=== PATIENT | male | born 1970 | race Caucasian/White ===

== ENCOUNTER 2021-04-12 01:53 | Observation (INO) | payer BC, SELFPAY ==
[2021-04-12] VITALS (8 sets, daily range): BP systolic 126–200; BP diastolic 93–161; PULSE 75–110; RESP 14–30; TEMP 36.8–36.9; O2SAT 94–100; BMI 45.6
--- NOTE | ~2021-04-12 | CT_ITS ---
EXAMINATION: CTA chest DATE: 04/12/2021 03:59 INDICATION: Chest pain radiating to left arm TECHNIQUE: Computed tomography angiography (CTA) of the chest was performed with 100 mL Omnipaque-350 intravenous contrast timed to evaluate the pulmonary arteries. Coronal maximum intensity projection 3D-reconstructions were created by the technologist. Automated exposure control and iterative reconst ruction technique were employed. Exam dose: 1078.00 mGy-cm total exam DLP. COMPARISON: 04/12/2021 portable AP chest 06/10/2016 CT pulmonary scan FINDINGS: The pulmonary arteries and moderately opacified with contrast material. No pulmonary emboli sm is evident. No thoracic aortic aneurysm or dissection. Normal heart size. No pericardial or pleural effusion. Circumferential thickening of the esophageal wall, possibly secondary to esophagitis. Normal morphology of the adrenal glands. The lungs are clear of infiltrate or consolidation. No pulmonary mass lesion is evident. Diffuse idiopathic skeletal hyperostosis of the thoracic and lumbar spine. No suspicious osteolytic o r osteoblastic lesions. IMPRESSION: No evidence of pulmonary embolism Reviewed, dictated and finalized at [facility]. Reviewed, dictated and finalized at location [facility].
--- NOTE | ~2021-04-12 | XR_ITS ---
EXAMINATION: XR chest 1V portable DATE: 04/12/2021 02:53 INDICATION: Chest pain. TECHNIQUE: A single frontal view of the chest was obtained on 2 radiographs. COMPARISON: Chest 2 views 06/10/2016, chest CT 04/12/2021 FINDINGS: The chest demonstrates clear lungs without pneumonia, pleural effusion, or pneumothorax. Th e heart size is normal. IMPRESSION: 1. No acute cardiopulmonary disease. Reviewed, dictated and finalized at location [facility].
--- NOTE | 2021-04-12 02:08 | ECG_ITS ---
Measurements Intervals [place] Rate: 99 P: 58 WI: 144 QRS: 1 QRSD: 101 T: 65 QT: 334 QTc: 430 Interpretive Statements SINUS RHYTHM EARLY PRECORDIAL R/S TRANSITION ST-T WAVE ABNORMALITY IN ANTEROLATERAL LEADS- CONSIDER ISCHEMIA BASELINE ARTIFACT- I, II, III, AVR, AVL, AVF, V2-V6 ABNORMAL ECG Electronically Signed On 04-12-2021 6:54:06 CDT by Ishan Jj D.O.
[2021-04-12 02:25] LABS: Basophils Absolute Auto 0.1 K/mm3 (0.0-0.1); Basophils Percent Auto 0.7 % (0.2-1.2); Eosinophils Absolute Auto 0.1 K/mm3 (0-0.3); Eosinophils Percent Auto 0.8 % (0-4.4); Hematocrit 53.3 % (42.0-52.0); Hemoglobin 17.7 g/dL (14.0-18.0); Immature Granulocyte Absolute 0.06 K/mm3 (0.00-0.031); Immature Granulocyte Percent A 0.4 % (0-0.5); Lymphocytes Absolute Auto 3.86 K/mm3 (0.9-3.2); Lymphocytes Percent Auto 27.1 % (18.3-44.2); Mean Corpuscular HGB Conc 33.2 g/dl (32-36); Mean Corpuscular Hemoglobin 29.7 pg (26-34); Mean Corpuscular Volume 89.6 fl (80-100); Mean Platelet Volume 10.1 fl (7.4-10.4); Monocytes Absolute Auto 1.2 K/mm3 (0.1-0.6); Monocytes Percent Auto 8.2 % (2.6-8.5); Neutrophils Percent Auto 62.8 % (45.5-73.1); Platelet Count Result 324 k/mm3 (150-375); Red Blood Count 5.95 M/mm3 (4.6-6.20); Red Cell Distribution Width 12.9 % (11.5-14.5); White Blood Count 14.3 K/mm3 (4.5-10.0)
--- NOTE | 2021-04-12 02:31 | ECG_ITS ---
Measurements Intervals [place] Rate: 88 P: 56 [place]: 141 QRS: 0 QRSD: 100 T: 56 QT: 356 QTc: 431 Interpretive Statements SINUS RHYTHM NONSPECIFIC ST & T-WAVE ABNORMALITY- HIGH LATERAL LEADS BASELINE ARTIFACT- I, II, III, AVR, AVF, V1-V6 BORDERLINE ECG Electronically Signed On 04-12-2021 6:54:40 CDT by Ishan Jj D.O.
[2021-04-12 02:37] LABS: Anion Gap 15 mmol/L (8-16); Blood Urea Nitrogen 18 mg/dL (9-20); Calcium 9.8 mg/dL (8.4-10.2); Carbon Dioxide 19 mmol/L (22-30); Chloride 104 mmol/L (98-107); Estimated CRCL calculation 136 ml/min; Estimated Glomerular Filt Rate > 60; Glucose 133 mg/dL (75-110); Potassium 3.9 mmol/L (3.4-5.0); Sodium 138 mmol/L (137-145)
--- NOTE | 2021-04-12 02:39 | ED.CHESTPAIN ---
HPI - Chest Pain General Chief Complaint: Chest Pain Stated Complaint: Chest pain Time Seen by Provider: 04/12/21 01:57 Source: RN notes reviewed History of Present Illness HPI narrative: Patient presents emergency department from home for chest pain. Patient states he has chest pain across the midsternal chest described as a pressure that radiates into his left arm he states associated shortness of breath as well as diaphoresis patient states he does have a history of hypertension high cholesterol diabetes states he has history of anxiety and takes Xanax 2 mg 4 times a day denies any fevers or chills abdominal pain nausea vomiting or any other symptoms Related Data Home Medications Medication Instructions Recorded Confirmed Xanax 04/12/21 alprazolam [Xanax] 2 mg PO BID 04/12/21 04/12/21 atorvastatin [Lipitor] 04/12/21 empagliflozin [Jardiance] mg 04/12/21 lisinopril 04/12/21 metformin mg PO 04/12/21 pregabalin [Lyrica] 300 mg PO HS 04/12/21 04/12/21 venlafaxine mg 04/12/21 Allergies Allergy/AdvReac Type Severity Reaction Status Date / Time metformin Allergy Unknown Verified 06/18/16 22:20 Penicillins Allergy Unknown Verified 10/06/17 21:20 Sulfa (Sulfonamide Allergy Unknown Verified 05/04/15 14:00 Antibiotics) Review of Systems Review of Systems: Narrative: Gen.: Denies fevers or chills Eyes: Denies eye pain or visual change ENT: Denies congestion Respiratory: Reports shortness of breath CV: Reports chest pain GI: Denies abdominal pain nausea, emesis or diarrhea Musculoskeletal: Denies back pain or muscle pain Neuro: Denies numbness, tingling, weakness or focal weakness Skin: Denies rash Except as documented, all other systems reviewed and negative [facility] Past Medical History Medical History Anxiety Chronic low back pain Hypertension Obstructive sleep apnea Peripheral neuropathy Type 2 diabetes mellitus Surgical History Surgical History (Updated 10/13/19 @ 04:06 by Nora Mccray MD) History of arthroscopy of left knee Family History Family History (Updated 04/29/16 @ 23:19 by DOCTOR UNKNOWN) Father Hypertension Family history of diabetes mellitus in first degree relative Mother Hypertension Family history of diabetes mellitus in first degree relative Sibling Family history of diabetes mellitus in first degree relative Social History Social History Smoking status: Current every day smoker Alcohol intake: never Substance use type: marijuana Gender identity (if verbalized by the patient): Male Exam Narrative: Exam Narrative: APPEARANCE: Diaphoretic sitting upright in bed EYES: EOMI HEENT: Normocephalic, atraumatic, OMM RESPIRATORY: No respiratory distress Clear to auscultation bilaterally with no rhonchi wheezing or rales. CARDIOVASCULAR: Regular rate and rhythm without murmurs rubs or gallops. ABDOMINAL: Soft, nontender, nondistended, no rebound or guarding MUSCULOSKELETAl: Moves all extremities. No clubbing, cyanosis or edema. NEURO: Awake and alert. Following commands, speech normal, no focal deficits SKIN:: Warm, dry. No rashes lesions or abrasions PSYCHIATRIC: Normal affect/mood, Course Course Emergency Course: Nitroglycerin placed with no change in pain patient given morphine at that time continues to be diaphoretic will obtain CTA chest to ensure no aneurysm Patient states pain is resolved at this time Called and discussed with Dr. Galvan presentation work-up agrees with plan for admission at this time Patient requesting additional anxiety medication as he explains to me that he is on Xanax 2 mg 4 times a day Discussed with patient my discussion with cardiology discussed need for admission patient states he cannot stay at this time patient's has stage IV cancer and has an appointment at [facility] this morning she currently has a op
[2021-04-12 02:42] LABS: INR 0.9; Prothrombin Time 12.4 Seconds (11.1-14.7)
[2021-04-12 02:44] LABS: Partial Thromboplastin Time 27.8 SECONDS (22.3-36.8)
[2021-04-12] MEDS: ASPIRIN 81 MG CHEWABLE TABLET 324 MG PO (02:46)
[2021-04-12] MEDS: NITROGLYCERIN OINTMENT 1 INCH DOSE TRANSDERM (02:46)
[2021-04-12 02:49] LABS: Troponin I < 0.012 ng/mL (0.000-0.034)
[2021-04-12 03:13] LABS: D Dimer 0.41 ug/mL (<0.48)
[2021-04-12] MEDS: ONDANSETRON INJ 4 MG/2 ML VIAL IV PUSH (03:17)
[2021-04-12] MEDS: MORPHINE SULFATE (*CRX) 4 MG/ML INJ IV PUSH (03:17)
[2021-04-12 03:18] LABS: Alanine Aminotransferase 22 U/L (4-50); Albumin Level 4.9 g/dL (3.5-5.1); Alkaline Phosphatase 89 U/L (38-126); Aspartate Amino Transferase 27 U/L (17-59); Bilirubin,Total 0.5 mg/dL (0.2-1.3); Lipase 38 U/L (23-300)
[2021-04-12] MEDS: LORazepam INJ (*CRX) 2 MG/ML VIAL 1 MG IV PUSH (04:27)
[2021-04-12 05:51] LABS: Troponin I < 0.012 ng/mL (0.000-0.034)
--- NOTE | 2021-04-12 06:10 | PC.NURSE ---
pt currently leaving AMA. pt was told about the risks of leaving and the benefits of staying in the hospital. pt wanting to go to his car to think about it and may be back.
--- NOTE | 2021-04-12 06:23 | PC.NURSE ---
pt leaving AMA without signing or taking his discharge paperwork. pt was told the risks of leaving and the benefits of staying. pt told he can always come back in and to come back in if having chest pain, shortness of breath, nausea/vomiting, lightheadedness or a sudden cold sweat or anything of concern. IV taken out with catheter intact. pt states he is going to his car to think and may be back.
--- NOTE | 2021-04-12 06:23 | PC.NURSE ---
pt came back to room two after going to his car to think about his decision. pt is currently on the phone with his talking loudly.
--- NOTE | 2021-04-12 08:17 | PC.NURSE ---
This patient, Niko Lopez, was admitted to IMU Room 203-01. Patient/family oriented to hospital policies and general routines including ID bracelet, bed and alarms, visiting hours, pain management, procedures, bathroom and other care routines, personal items, smoking policy, room service/diet, and visiting hours. Information on how to activate the Rapid Response Team has been discussed. Patient/Family are encouraged to report perceived risks to care and to ask questions if they do not understand what they are told or what they should do.
--- NOTE | 2021-04-12 08:40 | PM.CNCAR ---
Assessment and Plan Assessment and plan (1) Chest pain: Code(s): R07.9 - Chest pain, unspecified Status: Acute Assessment and Plan: 50 y/o male with no prior cardiac history however multiple cardiovascular risk factors including HTN, DM, HLD, tobacco abuse and morbid obesity who presents with chest pain Chest pain in the setting of anxiety. Has mixed typical and atypical features for angina. He ruled out for GA with negative troponin X3 Given multiple cardiovascular risk factors he would benefit from stress testing for risk stratification and rule out ischemia as potential etiology of chest pain. He prefers to do that in outpatient settings Patient is stable for discharge from cardiac standpoint. Will arrange for follow up within a week. Would start ASA on discharge if patient not already on that Continue Atorvastatin (2) Hypertensive urgency: Code(s): I16.0 - Hypertensive urgency Status: Acute Assessment and Plan: In the setting of Anxiety. BP better now Continue Lisinopril Add HCTZ 25 mg daily with close monitoring of creatinine (had ARIAN in 2019, resolved) (3) Tobacco abuse: Code(s): Z72.0 - Tobacco use Status: Acute Assessment and Plan: Smoking cessation counseling History of Present Illness History of Present Illness Consult date/time: 04/12/21 08:40 50 y/o male with no prior cardiac history however multiple cardiovascular risk factors including HTN, DM, HLD, tobacco abuse and morbid obesity who presents with chest pain He has history of anxiety and depression, reports being under great deal of stress with having terminal illness and taking care of mother as well. He has been taking more Xanax than prescribed. yesterday he developed chest pain that radiated to left arm. He insists that he was having anxiety attack. He had similar episode 4 years ago and was admitted to [facility] and diagnosed with panic attack at that time. He feels back to normal now and wants to go home to take care of . his BP was 200/90 on admission, better now. His troponin is negative X3 EKG shows sinus rhythm with lateral borderline ST depression. He smokes pack a day. Mother has pacemaker. Father from accident Reason For Visit: Chest pain PMFSH Past Medical History Medical History Anxiety Chronic low back pain Hypertension Obstructive sleep apnea Peripheral neuropathy Type 2 diabetes mellitus Surgical History Surgical History (Updated 10/13/19 @ 04:06 by Nora Mccray MD) History of arthroscopy of left knee Family History Family History Father Hypertension Family history of diabetes mellitus in first degree relative Mother Hypertension Family history of diabetes mellitus in first degree relative Sibling Family history of diabetes mellitus in first degree relative Social History Social History Smoking packs per day: 1 Smoking cigarettes per day: 20.0 Years smoked: 20 Smoking pack-years: 20.00 Smoking status: Current every day smoker Tobacco type: cigarettes Alcohol intake: never Substance use: current Substance use type: marijuana Gender identity (if verbalized by the patient): Male Spiritual care concerns: No Meds Home Medications and Allergies Home Medications Medication Instructions Recorded Confirmed Type alprazolam [Xanax] 2 mg PO BID 04/12/21 04/12/21 History atorvastatin [Lipitor] 20 mg PO HS 04/12/21 04/12/21 History empagliflozin [Jardiance] 10 mg PO DAILY 04/12/21 04/12/21 History lisinopril 30 mg PO DAILY 04/12/21 04/12/21 History metformin 500 mg PO BID 04/12/21 04/12/21 History oxycodone-acetaminophen 1 tablet PO Q6H PRN 04/12/21 04/12/21 History pregabalin [Lyrica] 300 mg PO BID 04/12/21 04/12/21 History venlafaxine 75
[2021-04-12 08:52] LABS: Troponin I < 0.012 ng/mL (0.000-0.034)
--- NOTE | 2021-04-12 11:33 | PC.NURSE ---
Patient left against medical advice at 11:20. Patient was informed of potential risks at this time. IV was removed and home meds (alprazolam) were returned.
--- NOTE | 2021-04-19 11:10 | PM.EVENT ---
Event Note Event Note Event Note: History and Physicial 04/12/2021 50 y/o male with no prior cardiac history but PMH of HTN, DM, HLD, tobacco abuse and morbid obesity was admitted with chest pain. He ruled out for AR with negative troponin X3. He was seen by Cardiology and recommended Stress test as outpatient. Once admitted on floor, I was notified of his arrival. When I went to see him, he had already left AMA.
== END 2021-04-12 11:15 | disposition left against medical advice (07) ==
LOC: ANHED 06:03 → ANHIMU 06:49
PROVIDERS: Admitting Provider Internal Medicine; Emergency Provider Emergency Medicine; PCP Internal Medicine; Visit Provider Internal Medicine
DX: R07.9 Chest pain, unspecified (principal); I16.0 Hypertensive urgency; I10 Essential (primary) hypertension; E11.9 Type 2 diabetes mellitus without complications; E78.5 Hyperlipidemia, unspecified; E66.01 Morbid (severe) obesity due to excess calories; E11.42 Type 2 diabetes mellitus with diabetic polyneuropathy; F41.8 Other specified anxiety disorders; F17.210 Nicotine dependence, cigarettes, uncomplicated; G47.33 Obstructive sleep apnea (adult) (pediatric); Z68.42 Body mass index [BMI] 45.0-49.9, adult
CPT/HCPCS: 36415; 71045; 71275; 80048; 80076; 83690; 84484; 85025; 85380; 85610; 85730; 93005; 96374; 96375; 99285; A9270; G0378; G0379; J2060; J2270; J2405; Q9967

== ENCOUNTER 2022-03-23 02:30 | Emergency (ER) | payer BC, SELFPAY ==
[2022-03-23 02:32] VITALS: BP 153/99; PULSE 132; RESP 26; TEMP 37.1; O2SAT 100
[2022-03-23 03:39] VITALS: BP 122/78; PULSE 103; RESP 18; O2SAT 97
--- NOTE | 2022-03-23 03:47 | ED.WOUNDLAC ---
HPI - Wound/Laceration General Chief Complaint: Wound/Laceration <MARJ Pal Last Filed: 03/23/22 03:53> Stated Complaint: wound on back <Yoselin Ibrahim PA-C - Last Filed: 03/23/22 03:53> Time Seen by Provider: 03/23/22 03:24 <Yoselin Ibrahim PA-C - Last Filed: 03/23/22 03:53> History of Present Illness HPI narrative: Patient is a 51-year-old male who presents to the ER for evaluation of a lesion on his low back. Patient states he was tased by police about 3 Weeks ago while dealing with a mental health issue with his . Since then he has experienced redness around the site. States that the area did have crusting overlying it last week, but he denies any drainage from the site. Denies significant pain, fevers, chills, rapid progression of redness, and he tells me that the redness is actually improved over the past week. He has not been taking antibiotics for this. <MARJ Pal Last Filed: 03/23/22 03:53> Related Data Home Medications: Home Medications Medication Instructions Recorded Confirmed alprazolam 2 mg tablet (Xanax) See Rx Instructions .Route 04/12/21 04/12/21 .COMPLEX anxiety atorvastatin 20 mg tablet (Lipitor) 20 mg PO HS 04/12/21 04/12/21 empagliflozin 10 mg tablet 10 mg PO DAILY 04/12/21 04/12/21 (Jardiance) lisinopril 30 mg tablet 30 mg PO DAILY 04/12/21 04/12/21 metformin 500 mg tablet,extended 500 mg PO BID 04/12/21 04/12/21 release 24 hr oxycodone-acetaminophen 10 mg-325 1 tablet PO Q6H PRN pain 04/12/21 04/12/21 mg tablet pregabalin 300 mg capsule (Lyrica) 300 mg PO BID 04/12/21 04/12/21 venlafaxine 75 mg tablet 75 mg PO DAILY 04/12/21 04/12/21 <MARJ Pal Last Filed: 03/23/22 03:53> Allergies/Adverse Reactions: Allergies Allergy/AdvReac Type Severity Reaction Status Date / Time Penicillins Allergy Unknown Anaphylaxis Verified 03/23/22 02:37 Sulfa (Sulfonamide Allergy Unknown Anaphylaxis Verified 03/23/22 02:37 Antibiotics) <Yoselin Ibrahim PA-C - Last Filed: 03/23/22 03:53> Review of Systems Review of Systems: Gen.: Denies fevers or chills Eyes: Denies eye pain or visual change ENT: Denies congestion Respiratory: Denies shortness of breath or cough CV: Denies chest pain or palpitations GI: Denies abdominal pain nausea, emesis or diarrhea denies burning, urgency, frequency or hematuria Musculoskeletal: Denies back pain or muscle pain Neuro: Denies numbness, tingling, weakness or focal weakness Skin: Reports redness to low back. Except as documented, all other systems reviewed and negative <MARJ Pal Last Filed: 03/23/22 03:53> [facility] Past Medical History Medical History: Medical History Anxiety Chronic low back pain Hypertension Obstructive sleep apnea Peripheral neuropathy Type 2 diabetes mellitus <MARJ Pal Last Filed: 03/23/22 03:53> Surgical History Surgical History: Surgical History (Updated 10/13/19 @ 04:06 by Nora Mccray MD) History of arthroscopy of left knee <Yoselin Ibrahim PA-C - Last Filed: 03/23/22 03:53> Family History Family History: Family History Father Hypertension Family history of diabetes mellitus in first degree relative Mother Hypertension Family history of diabetes mellitus in first degree relative Sibling Family history of diabetes mellitus in first degree relative <MARJ Pal Last Filed: 03/23/22 03:53> Social History Social History: Social History Smoking packs per day: 1 Smoking cigarettes per day: 20.0 Years smoked: 20 Smoking pack-years: 20.00 Smoking status: Current every day smoker Tobacco type: cigarettes Alcohol intake: never
[2022-03-23] MEDS: DOXYCYCLINE HYCLATE 100 MG TABLET PO (03:56)
== END 2022-03-23 04:06 | disposition home or self-care (01) ==
PROVIDERS: Emergency Provider Emergency Medicine; PCP Family Medicine
DX: L03.90 Cellulitis, unspecified (principal); F41.9 Anxiety disorder, unspecified; I10 Essential (primary) hypertension; G47.30 Sleep apnea, unspecified; E11.9 Type 2 diabetes mellitus without complications; Z79.84 Long term (current) use of oral hypoglycemic drugs
CPT/HCPCS: 99283; A9270

== ENCOUNTER 2022-04-11 01:49 | Emergency (ER) | payer BC, SELFPAY ==
[2022-04-11] VITALS (12 sets, daily range): BP systolic 157; BP diastolic 86; PULSE 99–117; RESP 14–25; TEMP 36.7; O2SAT 96–100
--- NOTE | ~2022-04-11 | XR_ITS ---
EXAMINATION: XR chest 2V DATE: 04/11/2022 03:02 INDICATION: Chest pain. TECHNIQUE: Frontal and lateral views of the chest were obtained. COMPARISON: Chest single view 04/12/2021 FINDINGS: The chest demonstrates clear lungs without pneumonia, pleural effusion, or pneumothorax. Th e heart size is normal. IMPRESSION: 1. No acute cardiopulmonary disease. Reviewed, dictated and finalized at location A.
--- NOTE | 2022-04-11 01:51 | ECG_ITS ---
Measurements Intervals [place] Rate: 113 P: 63 [place]: 139 QRS: 37 QRSD: 101 T: 60 QT: 311 QTc: 427 Interpretive Statements SINUS TACHYCARDIA BORDERLINE ST-T WAVE ABNORMALITY- DIFFUSE LEADS BASELINE ARTIFACT- I, II, III, AVR, AVL, AVF, V1, V4-V6 ABNORMAL ECG Electronically Signed On 04-11-2022 6:11:18 CDT by Ishan Jj D.O.
[2022-04-11] MEDS: ASPIRIN 81 MG CHEWABLE TABLET 324 MG PO (02:28)
[2022-04-11 02:41] LABS: Basophils Absolute Auto 0.1 K/mm3 (0.0-0.1); Basophils Percent Auto 0.8 % (0.2-1.2); Eosinophils Absolute Auto 0.2 K/mm3 (0-0.3); Eosinophils Percent Auto 1.8 % (0-4.4); Hematocrit 44.6 % (42.0-52.0); Hemoglobin 15.1 g/dL (14.0-18.0); Immature Granulocyte Absolute 0.14 K/mm3 (0.00-0.031); Immature Granulocyte Percent A 1.1 % (0-0.5); Lymphocytes Absolute Auto 4.31 K/mm3 (0.9-3.2); Lymphocytes Percent Auto 32.6 % (18.3-44.2); Mean Corpuscular HGB Conc 33.9 g/dl (32-36); Mean Corpuscular Hemoglobin 30.1 pg (26-34); Mean Corpuscular Volume 88.8 fl (80-100); Mean Platelet Volume 9.7 fl (7.4-10.4); Monocytes Absolute Auto 1.2 K/mm3 (0.1-0.6); Monocytes Percent Auto 9.1 % (2.6-8.5); Neutrophils Absolute Auto 7.2 K/mm3 (1.3-6.7); Neutrophils Percent Auto 54.6 % (45.5-73.1); Platelet Count Result 412 k/mm3 (150-375); Red Blood Count 5.02 M/mm3 (4.6-6.20); White Blood Count 13.2 K/mm3 (4.5-10.0)
[2022-04-11 02:53] LABS: Creatine Kinase 34 U/L (55-170)
[2022-04-11 02:55] LABS: Partial Thromboplastin Time 26.4 SECONDS (22.3-36.8); Prothrombin Time 12.8 Seconds (11.1-14.7)
--- NOTE | 2022-04-11 02:55 | ED.CHESTPAIN ---
HPI - Chest Pain General Chief Complaint: Chest Pain Stated Complaint: CP Time Seen by Provider: 04/11/22 02:03 Source: patient and other History of Present Illness HPI narrative: Patient presents with multiple complaints voiced concerns about multiple stressors and his life however today his primary concern is his right calf pain and chest pain. Reports he has had calf pain since she was tased by the police couple weeks ago. He also reports intermittent chest pain over this time. His current episode of pain was around 8:00 this evening when he is up and walking around he reports currently his pain is improving and is nearly completely resolved. There are some associated shortness of breath denies any nausea vomiting or diaphoresis. His calf pain is achy constant worse with walking around, no radiation. Related Data Home Medications Medication Instructions Recorded Confirmed alprazolam 2 mg tablet (Xanax) See Rx Instructions .Route 04/12/21 04/12/21 .COMPLEX anxiety atorvastatin 20 mg tablet (Lipitor) 20 mg PO HS 04/12/21 04/12/21 empagliflozin 10 mg tablet 10 mg PO DAILY 04/12/21 04/12/21 (Jardiance) lisinopril 30 mg tablet 30 mg PO DAILY 04/12/21 04/12/21 metformin 500 mg tablet,extended 500 mg PO BID 04/12/21 04/12/21 release 24 hr pregabalin 300 mg capsule (Lyrica) 300 mg PO BID 04/12/21 04/12/21 venlafaxine 75 mg tablet 75 mg PO DAILY 04/12/21 04/12/21 Allergies Allergy/AdvReac Type Severity Reaction Status Date / Time Penicillins Allergy Unknown Anaphylaxis Verified 04/11/22 02:01 Sulfa (Sulfonamide Allergy Unknown Anaphylaxis Verified 04/11/22 02:01 Antibiotics) Review of Systems Review of Systems: CONSTITUTIONAL: Denies fever, chills, or sweats. EYES: Denies visual changes, redness, or discharge. ENT: Denies rhinorrhea, congestion, sore throat, or otalgia. CARDIOVASCULAR: Denies palpitations, or edema. RESPIRATORY: Denies cough. GASTROINTESTINAL: Denies abdominal pain, nausea, vomiting, or diarrhea. GENITOURINARY: Denies dysuria or hematuria. SKIN: Denies rash or itching. MUSCULOSKELETAL: Denies back pain, or myalgia. NEUROLOGIC: Denies headache, numbness, dizziness, or weakness. PSYCHIATRIC: Denies anxiety or depression. All systems reviewed & are unremarkable except as noted in HPI and below PMFSH Past Medical History Medical History Anxiety Chronic low back pain Hypertension Obstructive sleep apnea Peripheral neuropathy Type 2 diabetes mellitus Surgical History Surgical History History of arthroscopy of left knee Family History Family History Father Hypertension Family history of diabetes mellitus in first degree relative Mother Hypertension Family history of diabetes mellitus in first degree relative Sibling Family history of diabetes mellitus in first degree relative Social History Social History Smoking packs per day: 1 Smoking cigarettes per day: 20.0 Years smoked: 20 Smoking pack-years: 20.00 Smoking status: Current every day smoker Tobacco type: cigarettes Alcohol intake: never Substance use: current Substance use type: marijuana Gender identity (if verbalized by the patient): Male Spiritual care concerns: No Exam Narrative: GENERAL: Well-appearing, well-nourished, and in no acute distress. HEAD: Normocephalic, atraumatic. EYES: PERRLA and EOMI. ENT: Nares clear, no rhinorrhea or epistaxis. Mucous membranes moist. NECK: Supple. No masses. No JVD CHEST: Mild expiratory wheezing no respiratory distress HEART: Regular rate and rhythm. No murmur heard. Normal peripheral pulses. ABDOMEN: Soft, nontender, nondistended, normal active bowel sounds. EXTREMITIES: Normal range of motion. No edema. SKIN: Warm, dry, no rash. KARRI
[2022-04-11 02:57] LABS: Alanine Aminotransferase 27 U/L (6-50); Albumin Level 4.3 g/dL (3.5-5.1); Alkaline Phosphatase 88 U/L (38-126); Anion Gap 8 mmol/L (8-16); Aspartate Amino Transferase 19 U/L (17-59); Bilirubin,Total < 0.1 mg/dL (0.2-1.3); Blood Urea Nitrogen 28 mg/dL (9-20); Calcium 9.5 mg/dL (8.4-10.2); Carbon Dioxide 26 mmol/L (22-30); Chloride 101 mmol/L (98-107); Estimated CRCL calculation 125 ml/min; Estimated Glomerular Filt Rate > 60; Glucose 188 mg/dL (65-110); Lipase 94 U/L (23-300); Potassium 3.8 mmol/L (3.4-5.0); Sodium 135 mmol/L (137-145)
[2022-04-11 03:08] LABS: Troponin I < 0.012 ng/mL (0.000-0.034)
[2022-04-11] MEDS: IPRATROPIUM BR 0.02% INH SOLN 0.5 MG/2.5 ML VIAL INHALATION (03:08)
[2022-04-11] MEDS: ALBUTEROL SULFATE NEB 2.5 MG/3 ML INH 5 MG INHALATION (03:08)
[2022-04-11 03:15] LABS: D Dimer 0.41 ug/mL (<0.48)
--- NOTE | 2022-04-11 04:02 | PC.NURSE ---
While attempting to secure walker for pt after his request for crutches, pt removed own IV and ambulated out of ED with slow, unassisted gait. Stated he did not want to wait for his d/c paperwork.
== END 2022-04-11 04:06 | disposition home or self-care (01) ==
PROVIDERS: Emergency Provider Emergency Medicine; PCP Family Medicine
DX: R07.9 Chest pain, unspecified (principal); M79.661 Pain in right lower leg; I10 Essential (primary) hypertension; G47.33 Obstructive sleep apnea (adult) (pediatric); E11.42 Type 2 diabetes mellitus with diabetic polyneuropathy; F41.9 Anxiety disorder, unspecified; Z79.84 Long term (current) use of oral hypoglycemic drugs; F17.210 Nicotine dependence, cigarettes, uncomplicated; R00.0 Tachycardia, unspecified; R94.31 Abnormal electrocardiogram [ECG] [EKG]
CPT/HCPCS: 36415; 71046; 80053; 82550; 83690; 84484; 85025; 85380; 85610; 85730; 93005; 94640; 99284; A9270

== ENCOUNTER 2022-11-27 03:33 | Emergency (ER) | payer BC, SELFPAY ==
[2022-11-27] VITALS (22 sets, daily range): BP systolic 91–135; BP diastolic 56–91; PULSE 80–129; RESP 14–23; TEMP 36.9; O2SAT 92–100
--- NOTE | ~2022-11-27 | CT_ITS ---
EXAMINATION: CTA [facility] DATE: 11/27/2022 05:28 INDICATION: Ischemic toes on the left foot TECHNIQUE: Computed tomographic angiography (CTA) of the pelvis, and both lower extremities was perfo rmed with 150 mL Omnipaque-350 intravenous contrast. Automated exposure control and iterative reconst ruction technique were employed. The dose-length product was 1652.97 mGy-cm. Maximum intensity projec tion 3D-reconstructions of the arteries were created by the technologist on a separate workstation. COMPARISON: CT abdomen and pelvis 09/30/2018. FINDINGS: ABDOMINAL AORTA: Normal appearing inferior abdominal aorta. Normal NALDO. PELVIC VASCULATURE: Minimal calcified plaque at the left iliac bifurcation. The bilateral internal and internal iliac art eries are normal. RIGHT LOWER EXTREMITY VASCULATURE: The right common femoral, profunda, and superficial femoral arteries are normal. Thrombotic occlusion of the right popliteal artery. Reconstitution of flow below the level of the trifurcation. Minimal f low present in the distal portions of the right anterior tibial artery just above and at the level of the right ankle joint. Flow is present below the level of the right ankle joint in the posterior tib ial artery. Flow is not detected in the distal portions of the anterior tibial artery at the level of the midfoot and forefoot. LEFT LOWER EXTREMITY VASCULATURE: Normal left common femoral and left superficial femoral arteries. Moderate stenosis from thrombus in the distal portion of the left profundus, with occlusion of some branches. Occluding thrombus in the left popliteal artery, with reconstitution below the level of the trifurcation. Segmental loss of winter w in the proximal left peroneal artery. There is three-vessel flow below the level of the left ankle. Segmental loss of flow in the distal left posterior tibial artery at the level of the calcaneus. ADDITIONAL FINDINGS: Mild subcutaneous edema in the bilateral feet. Degenerative changes in the knees, hips, and lumbar sp ine. Small uncomplicated fat-containing umbilical and bilateral inguinal hernias. Prior appendectomy. Partial right SI joint fusion. IMPRESSION: 1. Bilateral occlusive thrombus in the popliteal arteries. 2. Although three-vessel flow is present at the level of the right ankle, there is decreased flow in the right anterior tibial artery and flow was not visualized in the anterior tibial artery at the lev el of the midfoot and forefoot. 3. Short segment absent flow in the proximal left peroneal artery. Three-vessel flow below the level of the ankle. Short segment loss of flow in the left posterior tibial artery at the level of the calc aneus. 4. Partially occlusive thrombus in the distal left profundus, with occlusion of several branches. Reviewed, dictated and finalized at location K. GRINDER IMPRESSION: 1. Bilateral occlusive thrombus in the popliteal arteries. 2. Although three-vessel flow is present at the level of the right ankle, there is decreased flow in the right anterior tibial artery and flow was not visuali zed in the anterior tibial artery at the level of the midfoot and forefoot. 3. Short segment absent flow in the proximal left peroneal artery. Three-vessel flow below the level of the ankle. Short segment loss of flow in the left post erior tibial artery at the level of the calcaneus. 4. Partially occlusive thrombus in the distal left profundus, with occlusion of several branches.
--- NOTE | ~2022-11-27 | XR_ITS ---
XR foot LT min 3V DATE: 11/27/2022 04:13 INDICATION: Toe pain. Ischemia. TECHNIQUE: 4 views COMPARISON: 10/07/2005 left great toe FINDINGS: Mild plantar calcaneal enthesopathy. Mild osteoarthritic change at the first metatarsophalangeal joint. No recent fracture or dislocation, periosteal reaction or bone destruction. No arterial calcification is noted. IMPRESSION: Osteoarthritis Reviewed, dictated and finalized at location A. HAND IMPRESSION: Osteoarthritis
--- NOTE | ~2022-11-27 | XR_ITS ---
XR chest 1V portable DATE: 11/27/2022 04:12 INDICATION: Cough TECHNIQUE: Portable upright AP chest on November 27, 2022 at 0359 hours COMPARISON: 04/11/2022 2 view chest FINDINGS: Normal heart size. No hilar or mediastinal enlargement. No pulmonary infiltrate or consolid ation, pleural effusion or pulmonary vascular congestion or pneumothorax. IMPRESSION: No active cardiopulmonary disease Reviewed, dictated and finalized at location A. NOMICS CONSULTANT
--- NOTE | ~2022-11-27 | XR_ITS ---
XR foot RT min 3V DATE: 11/27/2022 04:13 INDICATION: Toe pain, ischemia TECHNIQUE: Portable 4 view examination of right foot COMPARISON: None FINDINGS: Mild plantar and posterior calcaneal enthesopathy. There is mild osteoarthritic change at the tarsometatarsal joints and moderate osteoarthritis at the first metatarsophalangeal joint. No fracture, dislocation, periosteal reaction or bone destruction. No arterial calcifications are noted in the distal lower leg, ankle or foot. IMPRESSION: Polyarticular osteoarthritis Reviewed, dictated and finalized at location A. DECORATOR
--- NOTE | 2022-11-27 03:44 | ECG_ITS ---
Measurements Intervals [place] Rate: 117 P: 48 [place]: 108 QRS: 38 QRSD: 101 T: 57 QT: 311 QTc: 435 Interpretive Statements SINUS TACHYCARDIA WITH SHORT MA INTERVAL NONSPECIFIC ST SEGMENT ABNORMALITY ABNORMAL RHYTHM ECG COMPARED TO ECG 04/11/2022 01:58:29 NO SIGNIFICANT CHANGES Electronically Signed On 11-27-2022 8:08:07 SILVERWARE BUFFING MACHINE OPERATOR by Jorge Little M.D.
--- NOTE | 2022-11-27 03:47 | ED.GENADULT ---
HPI - General Adult General Chief complaint: Extremity Problem,Nontraumatic <Benny Hein MD - Last Filed: 11/27/22 07:12> Stated complaint: black toes <Benny Hein MD - Last Filed: 11/27/22 07:12> Time Seen by Provider: 11/27/22 03:37 <Benny Hein MD - Last Filed: 11/27/22 07:12> History of Present Illness HPI narrative: Patient 52-year-old gentleman who presents the emergency department with chief complaint of foot pain patient reports that he was just admitted at [facility] and left AMA on Monday patient reports that he was in the hospital receiving medications to keep his blood pressure up and the tips of his toes started turning blue and have turned black. The patient reports his left foot is exquisitely painful the dorsum of the foot is red and the tips of his toes are black <eBnny Hein MD - Last Filed: 11/27/22 07:12> Related Data Home medications: Home Medications Medication Instructions Recorded Confirmed alprazolam 2 mg tablet (Xanax) See Rx Instructions .Route 04/12/21 04/12/21 .COMPLEX anxiety atorvastatin 20 mg tablet (Lipitor) 20 mg PO HS 04/12/21 04/12/21 empagliflozin 10 mg tablet 10 mg PO DAILY 04/12/21 04/12/21 (Jardiance) lisinopril 30 mg tablet 30 mg PO DAILY 04/12/21 04/12/21 metformin 500 mg tablet,extended 500 mg PO BID 04/12/21 04/12/21 release 24 hr pregabalin 300 mg capsule (Lyrica) 300 mg PO BID 04/12/21 04/12/21 venlafaxine 75 mg tablet 75 mg PO DAILY 04/12/21 04/12/21 <Benny Hein MD - Last Filed: 11/27/22 07:12> Allergies/adverse reactions: Allergies Allergy/AdvReac Type Severity Reaction Status Date / Time Penicillins Allergy Unknown Anaphylaxis Verified 11/27/22 08:04 Sulfa (Sulfonamide Allergy Unknown Anaphylaxis Verified 11/27/22 08:04 Antibiotics) <Benny Hein MD - Last Filed: 11/27/22 07:12> Review of Systems Review of Systems: A 10 system review of systems was completed on the patient and is negative except for what is stated in the HPI. Nursing and ancillary documentation was reviewed. <Benny Hein MD - Last Filed: 11/27/22 07:12> PMFSH Past Medical History Medical History: Medical History Anxiety Chronic low back pain Hypertension Obstructive sleep apnea Peripheral neuropathy Type 2 diabetes mellitus <Benny Hein MD - Last Filed: 11/27/22 07:12> Surgical History Surgical History: Surgical History History of arthroscopy of left knee <Benny Hein MD - Last Filed: 11/27/22 07:12> Family History Family History: Family History Father Hypertension Family history of diabetes mellitus in first degree relative Mother Hypertension Family history of diabetes mellitus in first degree relative Sibling Family history of diabetes mellitus in first degree relative <Benny Hein MD - Last Filed: 11/27/22 07:12> Social History Social History: Social History Smoking packs per day: 1 Smoking cigarettes per day: 20.0 Years smoked: 20 Smoking pack-years: 20.00 Smoking status: Current every day smoker Tobacco type: cigarettes Alcohol intake: never Substance use: current Substance use type: marijuana Gender identity (if verbalized by the patient): Male Spiritual care concerns: No <Benny Hein MD - Last Filed: 11/27/22 07:12> Exam Narrative: GENERAL: Well-appearing, well-nourished, and in no acute distress. HEAD: Normocephalic, atraumatic. EYES: PERRLA and EOMI. ENT: Nares clear, no rhinorrhea or epistaxis. Mucous membranes moist. NECK: Supple. CHEST: Clear to auscultation. No respiratory distres
[2022-11-27] MEDS: MORPHINE SULFATE (*CRX) 4 MG/ML INJ IV PUSH ×3 (04:09→08:47)
[2022-11-27 04:10] LABS: Basophils Absolute Auto 0.2 K/mm3 (0.0-0.1); Eosinophils Absolute Auto 0.3 K/mm3 (0-0.3); Eosinophils Percent Auto 2.1 % (0-4.4); Hematocrit 43.3 % (42.0-52.0); Hemoglobin 14.2 g/dL (14.0-18.0); Immature Granulocyte Absolute 0.44 K/mm3 (0.00-0.031); Immature Granulocyte Percent A 2.9 % (0-0.5); Lymphocytes Absolute Auto 3.22 K/mm3 (0.9-3.2); Lymphocytes Percent Auto 20.9 % (18.3-44.2); Mean Corpuscular HGB Conc 32.8 g/dl (32-36); Mean Corpuscular Hemoglobin 28.8 pg (26-34); Mean Corpuscular Volume 87.8 fl (80-100); Mean Platelet Volume 10.3 fl (7.4-10.4); Monocytes Absolute Auto 1.2 K/mm3 (0.1-0.6); Monocytes Percent Auto 7.9 % (2.6-8.5); Neutrophils Absolute Auto 10.1 K/mm3 (1.3-6.7); Neutrophils Percent Auto 65.2 % (45.5-73.1); Platelet Count Result 450 k/mm3 (150-375); Red Blood Count 4.93 M/mm3 (4.6-6.20); Red Cell Distribution Width 13.7 % (11.5-14.5); White Blood Count 15.4 K/mm3 (4.5-10.0)
[2022-11-27 04:19] LABS: Alanine Aminotransferase 36 U/L (6-50); Albumin Level 4.5 g/dL (3.5-5.1); Alkaline Phosphatase 130 U/L (38-126); Anion Gap 11 mmol/L (8-16); Aspartate Amino Transferase 32 U/L (17-59); Bilirubin,Total 0.5 mg/dL (0.2-1.3); Blood Urea Nitrogen 46 mg/dL (9-20); Calcium 9.7 mg/dL (8.4-10.2); Carbon Dioxide 26 mmol/L (22-30); Chloride 94 mmol/L (98-107); Estimated CRCL calculation 57 ml/min; Estimated Glomerular Filt Rate 32; Glucose 242 mg/dL (65-110); Sodium 131 mmol/L (137-145)
[2022-11-27 04:21] LABS: INR 1.1; Prothrombin Time 13.7 Seconds (11.1-14.7)
--- NOTE | 2022-11-27 04:21 | PC.NURSE ---
Pedal pulse found w/ doppler on LLE.
[2022-11-27 04:22] LABS: Partial Thromboplastin Time 30.5 SECONDS (22.3-36.8)
[2022-11-27 04:23] LABS: CRP 6.6 mg/dL (<1.0); Lactic Acid Reflex 2.1 mmol/L (0.7-2.0); Magnesium 2.5 mg/dL (1.6-2.3)
[2022-11-27 04:47] LABS: Procalcitonin 0.2 ng/mL
[2022-11-27 04:54] LABS: Influenza A QL RT-PCR Negative (Negative); Influenza B QL RT-PCR Negative (Negative); SARS-CoV-2 RNA PCR Negative
--- NOTE | 2022-11-27 06:42 | PC.NURSE ---
Pt resting comfortably in bed, NAD, updated pt on plan of care, states pain is 3/10. Respirations even and unlabored.
[2022-11-27 07:05] LABS: Reflex Lactic Acid Yes or No Add Lactic
--- NOTE | 2022-11-27 07:11 | PC.NURSE ---
Report received from Arlene RN, pt resting comfortably, no s/s of pain at this time.
[2022-11-27 07:48] LABS: Lactic Acid 1.7 mmol/L (0.7-2.0)
[2022-11-27 08:01] LABS: Appearance Urine Clear (Clear); Bilirubin Urine 1+ (Negative); Blood Urine Trace-intact (Negative); Color Urine Yellow (Yellow); Glucose Urine UA 3+ mg/dL (Negative); Ketones Urine Trace mg/dL (Negative); Leukocyte Esterase Ur Negative LEU/UL (Negative); Nitrate Urine Negative (Negative); Protein Urine 2+ mg/dL (Negative); Specific Grav Ur <= 1.005 (1.001-1.035); Urobilinogen Urine 0.2 mg/dL (<2.0)
[2022-11-27 08:14] LABS: Mucus Urine Rare /lpf; Squamous Epithelial Cell Urine Occasional /hpf (Few)
[2022-11-27 08:16] LABS: Add Urine Microscopic? YES
[2022-11-27] MEDS: HEPARIN SOD/D5W 100 UNITS/ML 25,000 UNITS/250 ML BAG 15 UNITS IV CONT (11:49)
[2022-11-27] MEDS: HEPARIN SODIUM 5,000 UNITS/ML VIAL 10000 UNITS IV PUSH (11:51)
[2022-11-27 12:21] LABS: Glucose Point of Care 221 mg/dl (65-105)
--- NOTE | 2022-11-27 13:54 | PC.NURSE ---
pt. gave permission to discuss results and poc with spouse. Updated spouse but she wanted to know number of clots; Stat Rad report so a paper report and not in chart. Unable to provide spouse with number of clots .
[2022-11-27] MEDS: INSULIN ASPART (*BKC) 100 UNITS/ML SUB-Q ×2 (14:24→19:08)
[2022-11-27 14:39] LABS: Glucose Point of Care 302 mg/dl (65-105)
[2022-11-27] MEDS: MORPHINE SULFATE (*CRX) 2 MG/ML INJ IV PUSH ×2 (15:41→19:08)
--- NOTE | 2022-11-27 16:21 | PC.NURSE ---
pt accepted at [facility] Rm 201 ALS [facility] Med accepted ETA 1hr
[2022-11-27 17:33] LABS: Partial Thromboplastin Time 35.8 SECONDS (22.3-36.8)
[2022-11-27 18:47] LABS: Glucose Point of Care 276 mg/dl (65-105)
[2022-11-27] MEDS: HEPARIN SODIUM 5,000 UNITS/ML VIAL 9000 UNITS IV PUSH (19:07)
== END 2022-11-27 19:23 | disposition short-term general hospital (02) ==
PROVIDERS: Emergency Medicine; Emergency Provider Emergency Medicine
DX: I74.3 Embolism and thrombosis of arteries of the lower extremities (principal); E11.22 Type 2 diabetes mellitus with diabetic chronic kidney disease; I12.9 Hypertensive chronic kidney disease with stage 1 through stage 4 chronic kidney disease, or unspecified chronic kidney disease; N18.9 Chronic kidney disease, unspecified; Z20.822 Contact with and (suspected) exposure to COVID-19; E11.42 Type 2 diabetes mellitus with diabetic polyneuropathy; G47.33 Obstructive sleep apnea (adult) (pediatric); F41.9 Anxiety disorder, unspecified; F17.210 Nicotine dependence, cigarettes, uncomplicated; Z79.84 Long term (current) use of oral hypoglycemic drugs; M19.072 Primary osteoarthritis, left ankle and foot; M19.071 Primary osteoarthritis, right ankle and foot; R00.0 Tachycardia, unspecified; R94.31 Abnormal electrocardiogram [ECG] [EKG]
CPT/HCPCS: 36415; 71045; 73630; 73706; 80053; 81001; 82948; 83605; 83735; 84145; 85025; 85610; 85730; 86140; 87040; 87636; 93005; 96365; 96366; 96368; 96375; 96376; 99285; J1644; J1815; J2270; J3370; Q9967

== ENCOUNTER 2022-12-24 16:12 | Emergency (ER) | payer BC, SELFPAY ==
--- NOTE | ~2022-12-24 | XR_ITS ---
XR foot LT min 3V DATE: 12/24/2022 17:04 INDICATION: Leg and toes for 3 weeks. Dry gangrene TECHNIQUE: 4 views of left foot COMPARISON: None FINDINGS: There is soft tissue swelling of the foot. Mild plantar calcaneal enthesopathy without eros stacia change or periostitis. There is moderate osteoarthritis at the first metatarsophalangeal joint. There is mild osteoarthritic change at the tarsal and tarsometatarsal joints. No fracture, dislocation, periosteal reaction or bone destruction is detected. IMPRESSION: Polyarticular osteoarthritis Mild plantar calcaneal enthesopathy Soft tissue swelling Reviewed, dictated and finalized at location A.
[2022-12-24 16:20] VITALS: BP 112/83; PULSE 81; RESP 16; TEMP 36.2; O2SAT 98
[2022-12-24] MEDS: HYDROmorphone HCL INJ (*CRX) 1 MG/ML SYR 0.5 MG IV PUSH ×2 (17:01→18:34)
--- NOTE | 2022-12-24 17:02 | ED.EXTPRO ---
HPI - Extremity Problem General Chief complaint: Extremity Problem,Nontraumatic Stated complaint: left foot infection Time Seen by Provider: 12/24/22 16:31 History of Present Illness HPI Narrative: This is a 52-year-old male, past medical history of peripheral artery disease, status post bypass of the left leg, hypertension and diabetes, who presents to the emergency department complaining of left toe pain. Patient states he was admitted at an outside hospital for peripheral artery disease, or he underwent bypass. During that admission, he was on vasopressors, that resulted in dry gangrene of the toes of the left foot. He states he is being followed by podiatry and vascular surgery, with plan for amputation of the left toes. Today he complains of 8/10 toe pain. He believes he scraped his toes on an object on the floor. He denies fevers, chills or spreading redness of the foot. Related Data Home Medications Medication Instructions Recorded Confirmed alprazolam 2 mg tablet (Xanax) See Rx Instructions .Route 04/12/21 04/12/21 .COMPLEX anxiety atorvastatin 20 mg tablet (Lipitor) 20 mg PO HS 04/12/21 04/12/21 empagliflozin 10 mg tablet 10 mg PO DAILY 04/12/21 04/12/21 (Jardiance) lisinopril 30 mg tablet 30 mg PO DAILY 04/12/21 04/12/21 metformin 500 mg tablet,extended 500 mg PO BID 04/12/21 04/12/21 release 24 hr pregabalin 300 mg capsule (Lyrica) 300 mg PO BID 04/12/21 04/12/21 venlafaxine 75 mg tablet 75 mg PO DAILY 04/12/21 04/12/21 Allergies Allergy/AdvReac Type Severity Reaction Status Date / Time Penicillins Allergy Unknown Anaphylaxis Verified 12/24/22 17:10 Sulfa (Sulfonamide Allergy Unknown Anaphylaxis Verified 12/24/22 17:10 Antibiotics) Review of Systems Review of Systems: CONSTITUTIONAL: Denies fever, chills, or sweats. CARDIOVASCULAR: Denies chest pain, palpitations, or edema. RESPIRATORY: Denies cough or dyspnea. GASTROINTESTINAL: Denies abdominal pain, nausea, vomiting, or diarrhea. GENITOURINARY: Denies dysuria or hematuria. SKIN: Denies rash or itching. MUSCULOSKELETAL: Left toe pain, left foot pain denies back pain, or myalgia. NEUROLOGIC: Denies headache, numbness, dizziness, or weakness. PSYCHIATRIC: Denies anxiety or depression. PENDING SALE TO [facility] Past Medical History Medical History Anxiety Chronic low back pain Hypertension Obstructive sleep apnea Peripheral neuropathy Type 2 diabetes mellitus Surgical History Surgical History History of arthroscopy of left knee Family History Family History Father Hypertension Family history of diabetes mellitus in first degree relative Mother Hypertension Family history of diabetes mellitus in first degree relative Sibling Family history of diabetes mellitus in first degree relative Social History Social History Smoking packs per day: 1 Smoking cigarettes per day: 20.0 Years smoked: 20 Smoking pack-years: 20.00 Smoking status: Current every day smoker Tobacco type: cigarettes Alcohol intake: never Substance use: current Substance use type: marijuana Gender identity (if verbalized by the patient): Male Spiritual care concerns: No Exam Narrative: GENERAL: Well-developed, well-nourished, and in no acute distress. HEAD: Normocephalic, atraumatic. EYES: PERRLA and EOMI. ENT: Mucous membranes moist. Oropharynx without tonsillar hypertrophy exudate or other lesions. CHEST: Clear to auscultation. No respiratory distress. No wheezes rales or rhonchi HEART: Regular rate and rhythm. No murmur heard. Normal peripheral pulses. ABDOMEN: Soft, nontender, nondistended, normal active bowel sounds. EXTREMITIES: Dry gangrene noted of the left first through fifth toes each extending to the distal phalanx. There
[2022-12-24 17:10] LABS: Basophils Absolute Auto 0.1 K/mm3 (0.0-0.1); Eosinophils Absolute Auto 0.3 K/mm3 (0-0.3); Eosinophils Percent Auto 3.3 % (0-4.4); Hematocrit 36.3 % (42.0-52.0); Hemoglobin 11.5 g/dL (14.0-18.0); Immature Granulocyte Absolute 0.04 K/mm3 (0.00-0.031); Immature Granulocyte Percent A 0.5 % (0-0.5); Lymphocytes Absolute Auto 2.73 K/mm3 (0.9-3.2); Lymphocytes Percent Auto 33.2 % (18.3-44.2); Mean Corpuscular HGB Conc 31.7 g/dl (32-36); Mean Corpuscular Hemoglobin 29.2 pg (26-34); Mean Corpuscular Volume 92.1 fl (80-100); Mean Platelet Volume 9.5 fl (7.4-10.4); Monocytes Absolute Auto 0.7 K/mm3 (0.1-0.6); Monocytes Percent Auto 8.9 % (2.6-8.5); Neutrophils Absolute Auto 4.4 K/mm3 (1.3-6.7); Neutrophils Percent Auto 53.1 % (45.5-73.1); Platelet Count Result 387 k/mm3 (150-375); Red Blood Count 3.94 M/mm3 (4.6-6.20); Red Cell Distribution Width 15.8 % (11.5-14.5); White Blood Count 8.2 K/mm3 (4.5-10.0)
[2022-12-24 17:22] LABS: Alanine Aminotransferase 22 U/L (6-50); Alkaline Phosphatase 87 U/L (38-126); Anion Gap 7 mmol/L (8-16); Aspartate Amino Transferase 19 U/L (17-59); Bilirubin,Total 0.5 mg/dL (0.2-1.3); Blood Urea Nitrogen 13 mg/dL (9-20); CRP 1.9 mg/dL (<1.0); Calcium 8.8 mg/dL (8.4-10.2); Carbon Dioxide 25 mmol/L (22-30); Chloride 110 mmol/L (98-107); Estimated CRCL calculation 140 ml/min; Estimated Glomerular Filt Rate > 60; Glucose 182 mg/dL (65-110); Potassium 3.7 mmol/L (3.4-5.0); Sodium 142 mmol/L (137-145)
[2022-12-24 17:41] LABS: Erythrocyte Sedimentation Rate 33 mm/hr (0-20)
[2022-12-24 17:56] VITALS: BP 123/77; PULSE 72; RESP 20; O2SAT 98
[2022-12-24 18:46] VITALS: BP 127/82; PULSE 73; RESP 18; O2SAT 100
--- NOTE | 2022-12-24 19:06 | PC.NURSE ---
Pt left prior of IV removal, called his , she said she is EMT and will pull it out.
--- NOTE | 2022-12-24 19:26 | PC.NURSE ---
[place] police department call about wellness check and pt leaving the hospital prior his IV line removal. PD will go and check on the pt.
== END 2022-12-24 19:08 | disposition home or self-care (01) ==
PROVIDERS: Emergency Provider Preventive Medicine Aerospace Medicine
DX: E11.52 Type 2 diabetes mellitus with diabetic peripheral angiopathy with gangrene (principal); I96 Gangrene, not elsewhere classified; M79.672 Pain in left foot; I10 Essential (primary) hypertension; F17.210 Nicotine dependence, cigarettes, uncomplicated
CPT/HCPCS: 36415; 73630; 80053; 85025; 85652; 86140; 96374; 96376; 99284; J1170

== ENCOUNTER 2022-12-30 13:46 | Emergency (ER) | payer BC, SELFPAY ==
--- NOTE | ~2022-12-30 | XR_ITS ---
XR chest 1V portable DATE: 12/30/2022 15:40 INDICATION: Dizziness. Weakness. TECHNIQUE: PA chest COMPARISON: November 27, 2022 portable AP chest FINDINGS: No pulmonary infiltrate or consolidation, pleural effusion or pulmonary vascular congestion or pneumothorax is evident. Heart size is within normal range. Is mild aortic unfolding. No hilar or mediastinal enlargement. Included skeletal structures are unremarkable. IMPRESSION: No active cardiopulmonary disease Reviewed, dictated and finalized at location B.
--- NOTE | ~2022-12-30 | US_ITS ---
EXAMINATION: US soft tissue LE LT DATE: 12/30/2022 15:44 INDICATION: Peripheral arterial disease status post bypass grafting. Left lower limb pain. TECHNIQUE: Multiple grayscale and Doppler ultrasound images of the left lower limb were obtained. COMPARISON: CTA 11/27/2022 FINDINGS: There is a patent bypass graft from the area of the mid left superficial femoral artery to the calf. There is an 8.3 x 4.0 x 5.2 cm hematoma around the proximal graft attachment. There is a 3. 5 x 2.4 x 7.6 cm hematoma around the distal attachment. No pseudoaneurysm. IMPRESSION: 1. Patent arterial bypass graft from the mid left superficial femoral artery to the calf with hematom as adjacent to the proximal and distal attachments. No pseudoaneurysm. Reviewed, dictated and finalized at location A. IMPRESSION: 1. Patent arterial bypass graft from the mid left superficial femoral artery to the calf with hematomas adjacent to the proximal and distal attachments. No ps eudoaneurysm.
--- NOTE | ~2022-12-30 | US_ITS ---
EXAMINATION: US venous doppler [facility] DATE: 12/30/2022 15:45 INDICATION: Left lower limb pain. TECHNIQUE: Grayscale ultrasound images without and with compression and Doppler ultrasound images of the left lower extremity veins were obtained. COMPARISON: None. FINDINGS: The visualized portions of left common femoral vein, profunda (deep) femoral vein, femoral vein, popl iteal vein, posterior tibial veins, and greater saphenous vein outflow are patent. Note that compress ion was not performed from the femoral vein to the calf due to patient sensitivity. IMPRESSION: 1. No deep venous thrombosis. Reviewed, dictated and finalized at location A.
--- NOTE | ~2022-12-30 | CT_ITS ---
EXAMINATION: CT brain wo con DATE: 12/30/2022 15:38 INDICATION: Dizziness for one day TECHNIQUE: Computed tomography (CT) of the head was performed without intravenous contrast. The mA wa s adjusted according to patient size. Iterative reconstruction technique was employed. Exam dose: 68 1.00 mGy-cm total exam DLP. COMPARISON: None FINDINGS: No intracranial mass lesion or hemorrhage or cerebrovascular accident. No midline shift or mass effect. Normal ventricular size. Normal ricci-white matter differentiation. No subdural or epidur al hematoma is detected. 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 Minimal bilateral ethmoid air cell opacification. The paranasal si nuses and mastoid air cells are otherwise unremarkable. No fracture or bone destruction of the cranial vault. IMPRESSION: No intracranial abnormality Reviewed, dictated and finalized at Location A. Reviewed, dictated and finalized at location B. IMPRESSION: No intracranial abnormality
[2022-12-30 13:50] VITALS: BP 144/102; PULSE 107; RESP 18; TEMP 36.7; O2SAT 98
--- NOTE | 2022-12-30 14:18 | ECG_ITS ---
Measurements Intervals [place] Rate: 108 P: 56 CO: 151 QRS: 23 QRSD: 85 T: 27 QT: 329 QTc: 442 Interpretive Statements SINUS TACHYCARDIA FREQUENT VENTRICULAR PREMATURE COMPLEXES NONSPECIFIC ST & T-WAVE ABNORMALITY- DIFFUSE LEADS BASELINE ARTIFACT- I, III, AVR, AVL, AVF, V1, V3-V6 ABNORMAL ECG COMPARED TO ECG 11/27/2022 04:09:04 FREQUENT VENTRICULAR PREMATURE COMPLEXES NOW PRESENT Electronically Signed On 12-30-2022 14:58:49 CDT by Ishan Jj D.O.
[2022-12-30] MEDS: SODIUM CHLORIDE 0.9% IV 1,000 ML 999 ML IV CONT (14:28)
[2022-12-30 14:32] LABS: Basophils Absolute Auto 0.1 K/mm3 (0.0-0.1); Basophils Percent Auto 0.6 % (0.2-1.2); Eosinophils Absolute Auto 0.4 K/mm3 (0-0.3); Eosinophils Percent Auto 2.8 % (0-4.4); Hematocrit 42.3 % (42.0-52.0); Hemoglobin 13.5 g/dL (14.0-18.0); Immature Granulocyte Absolute 0.06 K/mm3 (0.00-0.031); Immature Granulocyte Percent A 0.5 % (0-0.5); Lymphocytes Absolute Auto 4.11 K/mm3 (0.9-3.2); Lymphocytes Percent Auto 32.8 % (18.3-44.2); Mean Corpuscular HGB Conc 31.9 g/dl (32-36); Mean Corpuscular Hemoglobin 29.8 pg (26-34); Mean Corpuscular Volume 93.4 fl (80-100); Mean Platelet Volume 9.6 fl (7.4-10.4); Monocytes Percent Auto 8.1 % (2.6-8.5); Neutrophils Absolute Auto 6.9 K/mm3 (1.3-6.7); Neutrophils Percent Auto 55.2 % (45.5-73.1); Platelet Count Result 405 k/mm3 (150-375); Red Blood Count 4.53 M/mm3 (4.6-6.20); Red Cell Distribution Width 16.2 % (11.5-14.5); White Blood Count 12.5 K/mm3 (4.5-10.0)
--- NOTE | 2022-12-30 14:38 | PC.NURSE ---
pt to ultrasound at this time.
[2022-12-30 14:45] LABS: Alanine Aminotransferase 25 U/L (6-50); Albumin Level 4.2 g/dL (3.5-5.1); Alkaline Phosphatase 100 U/L (38-126); Anion Gap 12 mmol/L (8-16); Aspartate Amino Transferase 25 U/L (17-59); Bilirubin,Total 0.6 mg/dL (0.2-1.3); Blood Urea Nitrogen 14 mg/dL (9-20); Calcium 8.6 mg/dL (8.4-10.2); Carbon Dioxide 25 mmol/L (22-30); Chloride 103 mmol/L (98-107); Estimated CRCL calculation 147 ml/min; Estimated Glomerular Filt Rate > 60; Glucose 185 mg/dL (65-110); Potassium 3.7 mmol/L (3.4-5.0); Sodium 140 mmol/L (137-145)
[2022-12-30 14:46] LABS: Lactic Acid Reflex 2.9 mmol/L (0.7-2.0)
[2022-12-30 14:50] LABS: INR 1.1; Prothrombin Time 13.7 Seconds (11.1-14.7)
[2022-12-30 14:51] LABS: Partial Thromboplastin Time 24.7 SECONDS (22.3-36.8)
[2022-12-30 14:56] LABS: Troponin I 0.015 ng/mL (0.000-0.034)
[2022-12-30 16:25] LABS: Appearance Urine Clear (Clear); Bacteria Urine None Seen /hpf; Bilirubin Urine Negative (Negative); Blood Urine Negative (Negative); Color Urine Yellow (Yellow); Glucose Urine UA 2+ mg/dL (Negative); Ketones Urine Trace mg/dL (Negative); Leukocyte Esterase Ur Negative LEU/UL (Negative); Nitrate Urine Negative (Negative); Protein Urine 1+ mg/dL (Negative); RBC Urine 0-2 /hpf (0-2); Specific Grav Ur 1.029 (1.001-1.035); Squamous Epithelial Cell Urine Occasional /hpf (Few); WBC Urine 0-5 /hpf; pH Urine 5.5 (5.0-9.0)
[2022-12-30 16:26] LABS: Add Urine Microscopic? YES
[2022-12-30 16:29] VITALS: BP 159/96; PULSE 90; RESP 18; O2SAT 98
[2022-12-30] MEDS: MORPHINE SULFATE (*CRX) 4 MG/ML INJ IV PUSH (17:11)
[2022-12-30 17:27] LABS: Reflex Lactic Acid Yes or No Add Lactic
[2022-12-30 17:49] LABS: Lactic Acid 1.5 mmol/L (0.7-2.0)
--- NOTE | 2022-12-30 18:28 | PC.NURSE ---
[facility] accepted transfer to [facility] Rm # [id number] ETA [id number]
--- NOTE | 2022-12-30 18:37 | ED.GENADULT ---
HPI - General Adult General Chief complaint: Dizziness Stated complaint: dizziness Time Seen by Provider: 12/30/22 13:59 Source: RN notes reviewed History of Present Illness HPI narrative: Patient presents emergency department from home for multiple complaints. Patient states he has been feeling dizzy yesterday and today and this is what he felt like the last time he was septic. He states that at that time he had called his tilt tray driver as he was afraid that he had an infection and was told to come to the emergency department for further evaluation. Patient also notes that he has had swelling around his surgical wound in his left thigh. Patient has a history of having blackened tips of his toes of his left foot and diagnosed with dry gangrene he had been seen in our facility for this back in November and transferred down to [facility] where he had a bypass of his left lower leg and been seen by podiatry for his blackened toes he is scheduled for amputation of his toes on January 05 but secondary to his symptoms today was told to come to the ER he cannot tell me the name of his tilt tray driver or his vascular surgeon but does know the surgeries were done at [facility] he denies any fevers or chills denies chest pain shortness of breath or any other symptoms states he does have pain in his left leg Patient is a poor historian Related Data Home Medications Medication Instructions Recorded Confirmed alprazolam 2 mg tablet (Xanax) See Rx Instructions .Route 04/12/21 04/12/21 .COMPLEX anxiety atorvastatin 20 mg tablet (Lipitor) 20 mg PO HS 04/12/21 04/12/21 empagliflozin 10 mg tablet 10 mg PO DAILY 04/12/21 04/12/21 (Jardiance) lisinopril 30 mg tablet 30 mg PO DAILY 04/12/21 04/12/21 metformin 500 mg tablet,extended 500 mg PO BID 04/12/21 04/12/21 release 24 hr pregabalin 300 mg capsule (Lyrica) 300 mg PO BID 04/12/21 04/12/21 venlafaxine 75 mg tablet 75 mg PO DAILY 04/12/21 04/12/21 Allergies Allergy/AdvReac Type Severity Reaction Status Date / Time Penicillins Allergy Unknown Anaphylaxis Verified 12/30/22 13:47 Sulfa (Sulfonamide Allergy Unknown Anaphylaxis Verified 12/30/22 13:47 Antibiotics) Review of Systems Review of Systems: Gen.: Denies fevers or chills ENT: Denies congestion Respiratory: Denies shortness of breath or cough CV: Denies chest pain or palpitations GI: Denies abdominal pain nausea, emesis or diarrhea Musculoskeletal: Denies back pain or muscle pain Neuro: Denies numbness, tingling, weakness or focal weakness Skin: See HPI Except as documented, all other systems reviewed and negative PMFSH Past Medical History Medical History Anxiety Chronic low back pain Hypertension Obstructive sleep apnea Peripheral neuropathy Type 2 diabetes mellitus Surgical History Surgical History History of arthroscopy of left knee Family History Family History Father Hypertension Family history of diabetes mellitus in first degree relative Mother Hypertension Family history of diabetes mellitus in first degree relative Sibling Family history of diabetes mellitus in first degree relative Social History Social History Smoking packs per day: 1 Smoking cigarettes per day: 20.0 Years smoked: 20 Smoking pack-years: 20.00 Smoking status: Current every day smoker Tobacco type: cigarettes Alcohol intake: never Substance use: current Substance use type: marijuana Gender identity (if verbalized by the patient): Male Spiritual care concerns: No Exam Narrative: APPEARANCE: No acute distress, nontoxic, resting in bed EYES: EOMI, PERRL HEENT: Normocephalic, atraumatic, OMM RESPIRATORY: No respiratory distress Clear to auscultation bilaterally with no rhonchi wheezin
[2022-12-30 18:51] VITALS: BP 139/83; PULSE 90; RESP 15; O2SAT 98
[2022-12-30] MEDS: MORPHINE SULFATE (*CRX) 2 MG/ML INJ IV PUSH (19:40)
--- NOTE | 2022-12-30 19:57 | PC.NURSE ---
Vancomycin stopped for transport per verbal order Dr. Lin.
== END 2022-12-30 19:57 | disposition short-term general hospital (02) ==
PROVIDERS: Emergency Provider Emergency Medicine; PCP Internal Medicine Gastroenterology
DX: E11.52 Type 2 diabetes mellitus with diabetic peripheral angiopathy with gangrene (principal); I96 Gangrene, not elsewhere classified; L76.32 Postprocedural hematoma of skin and subcutaneous tissue following other procedure; I10 Essential (primary) hypertension; F41.9 Anxiety disorder, unspecified; F17.210 Nicotine dependence, cigarettes, uncomplicated
CPT/HCPCS: 36415; 70450; 71045; 76882; 80053; 81001; 83605; 83735; 84484; 85025; 85610; 85730; 93005; 93971; 96365; 96366; 96375; 96376; 99285; J0131; J2270; J3370; J7030

== ENCOUNTER 2023-02-28 08:53 | Emergency (ER) | payer BC, SELFPAY ==
--- NOTE | ~2023-02-28 | CT_ITS ---
EXAMINATION: CT foot LT w con DATE: 02/28/2023 10:25 INDICATION: Left foot pain. TECHNIQUE: Computed tomography (CT) of the left foot was performed with 100 mL Omnipaque 350 intraven ous contrast. Automated exposure control and iterative reconstruction technique were employed. The do se-length product was 469.54 mGy-cm. COMPARISON: Left foot radiographs 12/24/2022 FINDINGS: Bone alignment is normal. There is amputation at head of first proximal phalanx, the bases of the second-fourth proximal phalanges, and head of fifth proximal phalanx. There is mild osteoarthr itis of first metatarsophalangeal joint, ankle joint, and many of the midfoot joints. There are enthe sophytes at the posterior and plantar aspects of calcaneal tuberosity. IMPRESSION: 1. Partial amputation of the toes. No evidence of osteomyelitis. 2. Mild polyarticular osteoarthritis. Reviewed, dictated and finalized at location L.
--- NOTE | ~2023-02-28 | US_ITS ---
EXAMINATION: US venous doppler [facility] DATE: 02/28/2023 09:44 INDICATION: Left lower limb pain. TECHNIQUE: Grayscale ultrasound images without and with compression and Doppler ultrasound images of the left lower extremity veins were obtained. COMPARISON: Ultrasound 12/30/2022 FINDINGS: The visualized portions of left common femoral vein, profunda (deep) femoral vein, femoral vein, popl iteal vein, peroneal veins, posterior tibial veins, and greater saphenous vein outflow are patent. IMPRESSION: 1. No deep venous thrombosis. Reviewed, dictated and finalized at location L.
[2023-02-28 09:00] VITALS: BP 175/123; PULSE 86; RESP 18; TEMP 37.1; O2SAT 96
--- NOTE | 2023-02-28 09:04 | ED.GENADULT ---
HPI - General Adult General Chief complaint: Wound/Laceration Stated complaint: L FOOT POST OP COMPLICATIONS Time Seen by Provider: 02/28/23 09:01 Source: patient Mode of arrival: ambulatory Limitations: no limitations History of Present Illness HPI narrative: This is a 52-year-old male with PMH of T2DM, peripheral neuropathy, HTN, foot gangrene who presents to the ED with chief complaint of left foot pain x10 days. 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 Patient states that he also at this time had a revision of his femoral bypass which had hematomas. He states he initially was doing fine with this but in the last week and a half, he is having more pain specifically in the left foot. Reports multiple falls. Feels like his foot is giving out on him. States that he is having 7 out of 10 pain in the foot. Reports mild swelling and erythema. Pain is specifically worsened with walking. Denies any fevers, drainage at the surgical site. Denies chest pain, shortness of breath, headache, LOC. Related Data Home Medications Medication Instructions Recorded Confirmed alprazolam 2 mg tablet (Xanax) See Rx Instructions .Route 04/12/21 04/12/21 .COMPLEX anxiety atorvastatin 20 mg tablet (Lipitor) 20 mg PO HS 04/12/21 04/12/21 empagliflozin 10 mg tablet 10 mg PO DAILY 04/12/21 04/12/21 (Jardiance) lisinopril 30 mg tablet 30 mg PO DAILY 04/12/21 04/12/21 metformin 500 mg tablet,extended 500 mg PO BID 04/12/21 04/12/21 release 24 hr pregabalin 300 mg capsule (Lyrica) 300 mg PO BID 04/12/21 04/12/21 venlafaxine 75 mg tablet 75 mg PO DAILY 04/12/21 04/12/21 Allergies Allergy/AdvReac Type Severity Reaction Status Date / Time Penicillins Allergy Unknown Anaphylaxis Verified 12/30/22 13:47 Sulfa (Sulfonamide Allergy Unknown Anaphylaxis Verified 12/30/22 13:47 Antibiotics) Review of Systems Review of Systems: CONSTITUTIONAL: Denies fever, chills, or sweats. EYES: Denies visual changes, redness, or discharge. ENT: Denies rhinorrhea, congestion, sore throat, or otalgia. CARDIOVASCULAR: Denies chest pain, palpitations, or edema. RESPIRATORY: Denies cough or dyspnea. GASTROINTESTINAL: Denies abdominal pain, nausea, vomiting, or diarrhea. GENITOURINARY: Denies dysuria or hematuria. SKIN: See HPI MUSCULOSKELETAL: Denies back pain, joint pain, or myalgia. NEUROLOGIC: Denies headache, numbness, dizziness, or weakness. PSYCHIATRIC: Denies anxiety or depression. FOR[facility]LY [facility] Past Medical History Medical History Anxiety Chronic low back pain Hypertension Obstructive sleep apnea Peripheral neuropathy Type 2 diabetes mellitus Surgical History Surgical History History of arthroscopy of left knee Family History Family History Father Hypertension Family history of diabetes mellitus in first degree relative Mother Hypertension Family history of diabetes mellitus in first degree relative Sibling Family history of diabetes mellitus in first degree relative Social History Social History Smoking packs per day: 1 Smoking cigarettes per day: 20.0 Years smoked: 20 Smoking pack-years: 20.00 Smoking status: Current every day smoker Tobacco type: cigarettes Alcohol intake: never Substance use: current Substance use type: marijuana Gender identity (if verbalized by the patient): Male Spiritual care concerns: No Exam Narrative: GENERAL: Well-appearing, well-nourished, and in no acute distress. HEAD: Normocephalic, atraumatic. EYES: PERRLA and EOMI. ENT: Nares clear, no rhinorrhea or epistaxis. Mucous membranes moist. Oropharynx without tonsillar hypertrophy exudate or other lesions. NECK: Supple. No adenopathy or masses. CHEST:
[2023-02-28] MEDS: HYDROmorphone HCL INJ (*CRX) 1 MG/ML SYR 0.5 MG IV PUSH ×2 (09:31→10:52)
[2023-02-28 09:33] VITALS: BP 173/113
[2023-02-28 09:47] VITALS: BP 186/106
[2023-02-28 09:56] LABS: Basophils Percent Auto 0.4 % (0.2-1.2); Eosinophils Absolute Auto 0.3 K/mm3 (0-0.3); Eosinophils Percent Auto 3.1 % (0-4.4); Hematocrit 46.1 % (42.0-52.0); Hemoglobin 14.5 g/dL (14.0-18.0); Immature Granulocyte Absolute 0.02 K/mm3 (0.00-0.031); Immature Granulocyte Percent A 0.2 % (0-0.5); Lymphocytes Absolute Auto 3.25 K/mm3 (0.9-3.2); Lymphocytes Percent Auto 35.6 % (18.3-44.2); Mean Corpuscular HGB Conc 31.5 g/dl (32-36); Mean Corpuscular Hemoglobin 27.9 pg (26-34); Mean Corpuscular Volume 88.8 fl (80-100); Mean Platelet Volume 11.2 fl (7.4-10.4); Monocytes Absolute Auto 0.7 K/mm3 (0.1-0.6); Monocytes Percent Auto 7.3 % (2.6-8.5); Neutrophils Absolute Auto 4.9 K/mm3 (1.3-6.7); Neutrophils Percent Auto 53.4 % (45.5-73.1); Platelet Count Result 319 k/mm3 (150-375); Red Blood Count 5.19 M/mm3 (4.6-6.20); Red Cell Distribution Width 14.5 % (11.5-14.5); White Blood Count 9.1 K/mm3 (4.5-10.0)
[2023-02-28 10:02] VITALS: BP 171/100
[2023-02-28 10:02] LABS: Alanine Aminotransferase 34 U/L (6-50); Albumin Level 4.2 g/dL (3.5-5.1); Alkaline Phosphatase 68 U/L (38-126); Anion Gap 8 mmol/L (8-16); Aspartate Amino Transferase 22 U/L (17-59); Bilirubin,Total 0.6 mg/dL (0.2-1.3); Blood Urea Nitrogen 17 mg/dL (9-20); Carbon Dioxide 26 mmol/L (22-30); Chloride 109 mmol/L (98-107); Estimated Glomerular Filt Rate > 60; Glucose 102 mg/dL (65-110); Potassium 3.9 mmol/L (3.4-5.0); Sodium 143 mmol/L (137-145)
--- NOTE | 2023-02-28 11:07 | PC.NURSE ---
Pt states he did NOT take his BP MEDS this AM because he knows his blood pressure reflects his pain level.
== END 2023-02-28 11:40 | disposition home or self-care (01) ==
PROVIDERS: Emergency Provider Physician Assistant; PCP Internal Medicine Gastroenterology
DX: M79.672 Pain in left foot (principal); E11.42 Type 2 diabetes mellitus with diabetic polyneuropathy; I10 Essential (primary) hypertension; G47.33 Obstructive sleep apnea (adult) (pediatric); Z89.412 Acquired absence of left great toe; Z89.422 Acquired absence of other left toe(s); F17.210 Nicotine dependence, cigarettes, uncomplicated; Z79.84 Long term (current) use of oral hypoglycemic drugs
CPT/HCPCS: 36415; 73701; 80053; 85025; 93971; 96374; 96376; 99284; J1170; Q9967

== ENCOUNTER 2023-03-22 15:38 | Emergency (ER) | payer BC, SELFPAY ==
--- NOTE | ~2023-03-22 | XR_ITS ---
EXAM: XR foot LT min 3V DATE: 03/22/2023 17:38 HISTORY: pain left foot, recent amputations . COMPARISON: 12/24/2022. FINDINGS: Normal mineralization. Partial amputations involving the first through fifth digits. No fr acture or dislocation. No lytic or blastic lesion. Degenerative change in the midfoot and tibiotalar joint. Plantar enthesopathy. No erosion or periosteal change. Mild soft tissue swelling over the fore foot. No subcutaneous gas. IMPRESSION: No radiographic evidence of ostium myelitis. Forefoot soft tissue swelling. No subcutaneo us gas or radiopaque foreign body. Reviewed, dictated and finalized at location K. IMPRESSION: No radiographic evidence of ostium myelitis. Forefoot soft tissue s welling. No subcutaneous gas or radiopaque foreign body.
--- NOTE | ~2023-03-22 | XR_ITS ---
EXAMINATION: XR chest 2V Exam Date/Time: 03/22/2023 16:07 CDT HISTORY: Chest pain Comparison: 12/30/2022. RESULT: Lines, tubes, and devices: None. Lungs and pleura: Emphysematous change, otherwise clear. Cardiomediastinal silhouette: Stable. Other: No acute osseous or upper abdominal finding. IMPRESSION: No acute cardiopulmonary process. Reviewed, dictated and finalized at location K.
--- NOTE | ~2023-03-22 | US_ITS ---
EXAMINATION: US venous doppler [facility] DATE: 03/22/2023 18:02 INDICATION: left foot/calf pain, surgery in december on left foot . TECHNIQUE: Grayscale images without and with compression and Doppler images of the left lower extremi ty veins were obtained. COMPARISON: None FINDINGS: The left common femoral vein, profunda (deep) femoral vein, femoral vein, popliteal vein, peroneal v ein, posterior tibial veins, gastrocnemius vein, and greater saphenous vein are patent. IMPRESSION: 1. Patent left lower extremity veins. No evidence of deep venous thrombosis. Reviewed, dictated and finalized at location K.
[2023-03-22 15:42] VITALS: BP 137/97; PULSE 104; RESP 18; TEMP 36.8; O2SAT 97
--- NOTE | 2023-03-22 15:42 | ECG_ITS ---
Measurements Intervals [place] Rate: 85 P: 18 SD: 127 QRS: 29 QRSD: 102 T: 44 QT: 367 QTc: 439 Interpretive Statements SINUS RHYTHM WITH FREQUENT VENTRICULAR PREMATURE COMPLEXES ABNORMAL RHYTHM ECG COMPARED TO ECG 12/30/2022 13:54:46 SINUS RHYTHM NOW PRESENT Electronically Signed On 03-22-2023 20:00:39 CDT by Concha Serrato M.D.
[2023-03-22 16:02] LABS: Basophils Absolute Auto 0.1 K/mm3 (0.0-0.1); Basophils Percent Auto 0.9 % (0.2-1.2); Eosinophils Absolute Auto 0.2 K/mm3 (0-0.3); Hematocrit 50.5 % (42.0-52.0); Hemoglobin 15.9 g/dL (14.0-18.0); Immature Granulocyte Absolute 0.04 K/mm3 (0.00-0.031); Immature Granulocyte Percent A 0.4 % (0-0.5); Lymphocytes Absolute Auto 2.79 K/mm3 (0.9-3.2); Lymphocytes Percent Auto 28.9 % (18.3-44.2); Mean Corpuscular HGB Conc 31.5 g/dl (32-36); Mean Corpuscular Hemoglobin 27.7 pg (26-34); Mean Platelet Volume 10.5 fl (7.4-10.4); Monocytes Absolute Auto 0.8 K/mm3 (0.1-0.6); Neutrophils Absolute Auto 5.8 K/mm3 (1.3-6.7); Neutrophils Percent Auto 59.8 % (45.5-73.1); Platelet Count Result 333 k/mm3 (150-375); Red Blood Count 5.74 M/mm3 (4.6-6.20); Red Cell Distribution Width 14.6 % (11.5-14.5); White Blood Count 9.7 K/mm3 (4.5-10.0)
[2023-03-22 16:16] LABS: Prothrombin Time 13.8 Seconds (11.1-14.7)
[2023-03-22 16:26] LABS: Alanine Aminotransferase 26 U/L (6-50); Albumin Level 4.3 g/dL (3.5-5.1); Alkaline Phosphatase 71 U/L (38-126); Anion Gap 7 mmol/L (8-16); Aspartate Amino Transferase 19 U/L (17-59); Bilirubin,Total 0.4 mg/dL (0.2-1.3); Blood Urea Nitrogen 15 mg/dL (9-20); Calcium 8.9 mg/dL (8.4-10.2); Carbon Dioxide 25 mmol/L (22-30); Chloride 109 mmol/L (98-107); Estimated CRCL calculation 121 ml/min; Estimated Glomerular Filt Rate > 60; Glucose 123 mg/dL (65-110); Lipase 33 U/L (23-300); Potassium 4.5 mmol/L (3.4-5.0); Sodium 141 mmol/L (137-145)
[2023-03-22 16:38] LABS: Troponin I < 0.012 ng/mL (0.000-0.034)
[2023-03-22 16:42] VITALS: BP 140/90; PULSE 85; RESP 20; TEMP 36.7; O2SAT 95
--- NOTE | 2023-03-22 17:16 | ED.GENADULT ---
HPI - General Adult General Chief complaint: Unspecified <MARJ Montoya Last Filed: 03/23/23 04:39> Stated complaint: Issues post left foot surgery <MARJ Montoya Last Filed: 03/23/23 04:39> Time Seen by Provider: 03/22/23 16:53 <MARJ Montoya Last Filed: 03/23/23 04:39> Source: patient and old records reviewed <MARJ Montoya Last Filed: 03/23/23 04:39> Mode of arrival: ambulatory <MARJ Montoya Last Filed: 03/23/23 04:39> Limitations: no limitations <MARJ Montoya Last Filed: 03/23/23 04:39> History of Present Illness HPI narrative: Patient is a 52-year-old male who presents to the ED with report of left foot pain. Patient reports history of gangrene in his left foot and toes and partial amputations of his left toes in December, which was performed by Dr. Gene Ambrosio, a human services program specialist with [facility]. Patient has had issues with pain in his left foot since his surgeries. He states he has an appointment next week on Monday with his human services program specialist, but he states he was referred to our hospital today to have his pain managed until he can see his human services program specialist next week. Patient reports having worsening pain over the last 4 to 5 days, worse with ambulation. He describes the pain as a burning pain. Pain does extend into his calf slightly. He uses a cane for assistance with walking. He has taken Tylenol and Aleve today. He also takes Lyrica for neuropathic pain. Denies any numbness, tingling, recurrent injury, redness, wounds, fevers. Per patient's [place] PDMP, he had a 14-day supply of oxycodone 325/10 mg filled on 03/09. He had another 14-day supply of oxycodone 325/5 mg filled on 03/15. These were both prescribed by patient's human services program specialist. <MARJ Montoya Last Filed: 03/23/23 04:39> Related Data Home medications: Home Medications Medication Instructions Recorded Confirmed alprazolam 2 mg tablet (Xanax) See Rx Instructions .Route 04/12/21 04/12/21 .COMPLEX anxiety atorvastatin 20 mg tablet (Lipitor) 20 mg PO HS 04/12/21 04/12/21 empagliflozin 10 mg tablet 10 mg PO DAILY 04/12/21 04/12/21 (Jardiance) lisinopril 30 mg tablet 30 mg PO DAILY 04/12/21 04/12/21 metformin 500 mg tablet,extended 500 mg PO BID 04/12/21 04/12/21 release 24 hr pregabalin 300 mg capsule (Lyrica) 300 mg PO BID 04/12/21 04/12/21 venlafaxine 75 mg tablet 75 mg PO DAILY 04/12/21 04/12/21 <MARJ Montoya Last Filed: 03/23/23 04:39> Allergies/adverse reactions: Allergies Allergy/AdvReac Type Severity Reaction Status Date / Time Penicillins Allergy Unknown Anaphylaxis Verified 03/22/23 16:46 Sulfa (Sulfonamide Allergy Unknown Anaphylaxis Verified 03/22/23 16:46 Antibiotics) <Citlalli Lau PA-C - Last Filed: 03/23/23 04:39> Review of Systems Review of Systems: CONSTITUTIONAL: Denies fever, chills, or sweats. CARDIOVASCULAR: Denies chest pain. RESPIRATORY: Denies dyspnea. SKIN: See HPI. MUSCULOSKELETAL: See HPI. NEUROLOGIC: Denies headache, numbness, or weakness. <Citlalli Lau PA-C - Last Filed: 03/23/23 04:39> All systems reviewed & are unremarkable except as noted in HPI and below <Citlalli Lau PA-C - Last Filed: 03/23/23 04:39> [facility] Past Medical History Medical History: Medical History Anxiety Chronic low back pain Hypertension Obstructive sleep apnea Peripheral neuropathy Type 2 diabetes mellitus <Citlalli Lau PA-C - Last Filed: 03/23/23 04:39> Surgical History Surgical History: Surgical History History of arthroscopy of left knee <Citlalli Lau PA-C - Last Filed: 03/23/23 04:39> Family History Family History: Family History (Reviewed 12/24/22 @ 17:04 by Urbano Harden,
--- NOTE | 2023-03-22 18:06 | PC.NURSE ---
pt pushing call light and repeatedly asking to see a doctor. this RN told pt that our Physician state tested nursing assistant Citlalli Gonzalez has seen him and is taking care of him. pt states she is not a doctor and wanting to speak with a doctor. Dr. Correa spoke with pt and agrees with Citlalli's plan of care. pt requesting pain medication. Dr. Correa stating pt needs to follow up with his waste chopper who has been taking care of him for his chronic issues. pt states Oh okay fuck me then right pt wanting to leave AMA. pt made aware of risks of leaving and the benefits of staying. pt still wanting to leave AMA. pt made aware he can always return if he changes his mind. when trying to get a signature from pt. pt states I ain't signing no damn paperwork Im out of here! pt getting dressed and demanding a wheelchair. got pt a wheelchair and pt wheeled himself out while stating Fuck all of you [facility] is [facility]
== END 2023-03-22 18:34 | disposition left against medical advice (07) ==
PROVIDERS: Emergency Medicine; Emergency Provider Physician Assistant; PCP Internal Medicine Gastroenterology
DX: E11.42 Type 2 diabetes mellitus with diabetic polyneuropathy (principal); I10 Essential (primary) hypertension; G47.33 Obstructive sleep apnea (adult) (pediatric); F41.9 Anxiety disorder, unspecified; F17.210 Nicotine dependence, cigarettes, uncomplicated; Z89.412 Acquired absence of left great toe; Z89.422 Acquired absence of other left toe(s); Z79.84 Long term (current) use of oral hypoglycemic drugs; I49.3 Ventricular premature depolarization
CPT/HCPCS: 36415; 71046; 73630; 80053; 83690; 84484; 85025; 85610; 85730; 93005; 93971; 99284

== ENCOUNTER 2024-05-06 08:02 | Outpatient (CLI) | payer MEDICARE, SELFPAY ==
--- NOTE | 2024-05-06 09:23 | ECG_ITS ---
Test Date: 2024-05-06 09:41:18 Measurements Intervals [place] Rate: 97 P: 55 DC: 148 QRS: 10 QRSD: 103 T: 46 QT: 356 QTc: 453 Interpretive Statements SINUS RHYTHM NORMAL ELECTROCARDIOGRAM No previous ECG available for comparison Electronically Signed On 05-06-2024 17:09:43 CDT by Jorge Little M.D.
[2024-05-06 09:55] LABS: Basophils Absolute Auto 0.1 K/mm3 (0.0-0.1); Basophils Percent Auto 1.1 % (0.2-1.2); Eosinophils Absolute Auto 0.3 K/mm3 (0-0.3); Eosinophils Percent Auto 3.2 % (0-4.4); Hematocrit 46.7 % (42.0-52.0); Immature Granulocyte Absolute 0.03 K/mm3 (0.00-0.031); Immature Granulocyte Percent A 0.4 % (0-0.5); Lymphocytes Absolute Auto 3.43 K/mm3 (0.9-3.2); Mean Corpuscular HGB Conc 32.1 g/dl (32-36); Mean Corpuscular Hemoglobin 28.6 pg (26-34); Mean Corpuscular Volume 89.1 fl (80-100); Mean Platelet Volume 9.8 fl (7.4-10.4); Monocytes Absolute Auto 0.8 K/mm3 (0.1-0.6); Monocytes Percent Auto 9.9 % (2.6-8.5); Neutrophils Absolute Auto 3.7 K/mm3 (1.3-6.7); Neutrophils Percent Auto 44.4 % (45.5-73.1); Platelet Count Result 357 k/mm3 (150-375); Red Blood Count 5.24 M/mm3 (4.6-6.20); Red Cell Distribution Width 14.2 % (11.5-14.5); White Blood Count 8.4 K/mm3 (4.5-10.0)
[2024-05-06 10:01] LABS: Albumin Level 4.6 g/dL (3.5-5.1)
[2024-05-06 10:04] LABS: Anion Gap 9 mmol/L (4-12); Blood Urea Nitrogen 13 mg/dL (9-20); Calcium 9.3 mg/dL (8.4-10.2); Carbon Dioxide 31 mmol/L (22-30); Chloride 99 mmol/L (98-107); Estimated Glomerular Filt Rate > 60; Glucose 127 mg/dL (65-110); Potassium 4.6 mmol/L (3.4-5.0); Sodium 139 mmol/L (137-145)
[2024-05-06 10:09] LABS: Urine Cotinine NEGATIVE
[2024-05-06 12:36] LABS: Hemoglobin A1C 6.7 % (<5.7)
== END 2024-05-06 08:03 | disposition home or self-care (01) ==
LOC: ANHSURGERY 08:06
PROVIDERS: Anesthesiology; PCP Internal Medicine Gastroenterology; Visit Provider Orthopaedic Surgery
DX: M17.11 Unilateral primary osteoarthritis, right knee (principal); E11.9 Type 2 diabetes mellitus without complications; Z01.818 Encounter for other preprocedural examination
CPT/HCPCS: 36415; 80048; 80307; 82040; 83036; 85025; 86850; 86900; 86901; 93005

== ENCOUNTER 2024-05-08 02:06 | Day surgery (SDC) | payer MEDICARE, MEDICAID, SELFPAY ==
[2024-05-06 08:17] VITALS: BMI 37.1
--- NOTE | 2024-05-06 08:59 | PC.NURSE ---
Addendum entered by Cheyenne Carranza RN 05/06/24 09:06: PT STATES NO LONGER TAKING VENLAFAXINE. MAY TAKE TYLENOL IF NEEDED FOR PAIN Original Note: Report to the Outpatient Waiting Room, entrance under the green pavilion located off [facility], at time __6:00 AM on date ___05/08/24____. Planned Procedure Time: __7:30 AM . Time changes happen often and if your time is changed the preop area will call you the afternoon before. - You and your visitor will be asked to self-screen and do not enter if you have any COVID symptoms. - A mask is optional within the hospital at this time. Patients may have clear liquids (water, carbonated beverages, clear teas, apple juice) until 3 hours prior to surgery( 4:30 AM) with a maximum of 20 ounces. - No food from midnight until time of surgery - Infants may have breast milk until 4 hours before surgery, formula 6 hours prior to surgery. - Children will be allowed to drink immediately following surgery. If applicable, please bring a bottle or sippy cup to assist with drinking. Juice, water, soda, and popsicles are readily available. For infants on formula, please bring formula the day of surgery. Pacifiers are allowed. Take the following medications with a SIP of water the morning of surgery: ____XANAX,AMLODIPINE,CARVEDILOL,LYRICA,VENLAFAXINE DO NOT STOP ANY OF YOUR OTHER PRESCRIPTION MEDICATIONS PRIOR TO SURGERY ?EXCEPT THE FOLLOWING Medications to discontinue per physician HOLD MULTIVITAMIN 3 DAYS PRE OP PER ANESTHESIA. PT STATES LAST DOSE 04/30/24 Please no make-up, nail congolese, hairspray, perfume, deodorant, or body powder the day of surgery. No jewelry (including any body piercings) or valuables the day of surgery, leave them at home. Please take a shower or bath the night before, or the morning of, surgery with an antibacterial soap. Wear comfortable, loose fitting clothing. Children are encouraged to wear pajamas. - Jewelry must be removed prior to entering the operating room. Rings and piercings that are not removed may be cut off. - The hospital will not accept responsibility for valuables. - Please leave all valuables, including medications, at home the day of surgery. If you are going home after surgery, a licensed motor driver must drive you home. - NO public transportation without another adult if you receive anesthesia. - We recommend that an adult stay with you for 24 hours following discharge. - We also recommend that you do not drive, make important decision, drink alcoholic beverages, or take any drugs that were not prescribed by your health care provider for at least 24 hours after your discharge time. Follow any additional instructions given to you from your surgeon. If you or anyone in your household have experienced Covid symptoms in the past week, please notify your surgeon or the nurse liaison at the phone number below for possible testing. VERBAL AND WRITTEN instructions given to _PATIENT and asked if any additional questions and then verbalized understanding. Patient advised to call surgeon office or pre surgery nurse liaison [phone] if any additional questions.
[2024-05-06 09:12] VITALS: BP 159/100; PULSE 87; RESP 18; TEMP 36.9; O2SAT 98
--- NOTE | 2024-05-07 07:06 | PM.IMHP ---
H&P: HPI History of Present Illness Date/Time: 05/07/24 07:06 Chief Complaint: Right Knee Osteoarthritis Review of Systems Musculoskeletal: Musculoskeletal: Reports arthralgias, Reports joint swelling and Reports stiffness [facility] Past Medical History Medical History Anxiety Chronic low back pain Hypertension Obstructive sleep apnea Peripheral neuropathy Type 2 diabetes mellitus Surgical History Surgical History History of aortoiliofemoral vascular bypass History of appendectomy History of arthroscopic knee surgery bilateral History of arthroscopy of left knee History of partial amputation of toe of left foot Family History Family History (Updated 04/30/24 @ 10:43 by KENIA Martínez) Father Hypertension Family history of diabetes mellitus in first degree relative Mother Hypertension Family history of diabetes mellitus in first degree relative Cellulitis Heart disease Sibling Family history of diabetes mellitus in first degree relative Social History Social History (Updated 04/30/24 @ 10:44 by KENIA Martínez) Smoking packs per day: 1 Smoking cigarettes per day: 20.0 Years smoked: 20 Smoking pack-years: 20.00 Smoking status: Former smoker Tobacco type: cigarettes Second hand tobacco smoke exposure: Yes Smoking end date: 03/07/24 Additional smoking assessment comments: DENIES ANY FORM OF TOBACCO USE Alcohol intake: never Substance use: former Substance use type: marijuana Last use: last use 2020 Do You Feel Safe in your Home?: Yes Lack of Transportation: No Lack of Food: Sometimes True Current Housing: I Have Housing Concerned About Future Housing: No Difficulty Paying Gas/Electric Bills: YES Difficulty Paying for Meds: YES Currently Unemployed: No Education: Master's Degree or Higher Difficulty w/ Childcare or Family Care: No Living arrangements: other Additional living arrangements comments: lives with girlfriend Occupation/Education: retired 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[employer] Gender identity (if verbalized by the patient): Male Spiritual care concerns: No Meds Home Medications and Allergies Home Medications Medication Instructions Recorded Confirmed Type alprazolam 2 mg tablet (Xanax) See Rx Instructions .Route 04/12/21 05/06/24 History .COMPLEX anxiety atorvastatin 20 mg tablet (Lipitor) 20 mg PO HS 04/12/21 05/06/24 History pregabalin 300 mg capsule (Lyrica) 300 mg PO BID 04/12/21 05/06/24 History rivaroxaban 10 mg tablet (Xarelto) 10 mg PO DAILY PE Prophylaxis s/p 04/05/24 05/06/24 Rx joint replacement surgery #10 tabs acetaminophen 500 mg capsule 1,000 mg PO Q6H PRN Pain 05/06/24 05/06/24 History amlodipine 10 mg tablet 10 mg PO DAILY 05/06/24 05/06/24 History carvedilol 12.5 mg tablet 12.5 mg PO BID 05/06/24 05/06/24 History glipizide 5 mg tablet 5 mg PO DAILY 05/06/24 05/06/24 History hydrochlorothiazide 25 mg tablet 25 mg PO DAILY 05/06/24 05/06/24 History lisinopril 40 mg tablet 40 mg PO DAILY 05/06/24 05/06/24 History metformin 1,000 mg tablet 1,000 mg PO BID 05/06/24 05/06/24 History multivitamin (Daily Multi-Vitamin 1 tablet PO DAILY 05/06/24 05/06/24 History tablet) trazodone 50 mg tablet 50 mg PO PRN PRN Insomnia 05/06/24 05/06/24 History Allergies Allergy/AdvReac Type Severity Reaction Status Date / Time Penicillins Allergy Unknown Anaphylaxis Verified 05/06/24 08:21 Sulfa (Sulfonamide Allergy Unknown Nausea and Verified 05/06/24 08:22 Antibiotics) Vomiting Vital Signs Vital Signs - 24 hr 05/06/24 09:12 Temperature 98.5 F Pulse Rate 87 Respiratory Rate 18 Blood Pressure 159/100 H Pulse Oximetry 98 Oxygen Delivery Room Air Exam Narrative: Patient is NVI. ROM 5-110. Patient has an antalgic gait. Pain with motion
[2024-05-08] VITALS (15 sets, daily range): BP systolic 123–176; BP diastolic 62–116; PULSE 73–99; RESP 13–22; TEMP 36.1–37.1; O2SAT 95–100
--- NOTE | ~2024-05-08 | XR_ITS ---
EXAMINATION: [id number] DATE: 05/08/2024 10:19 INDICATION: Total right knee arthroplasty. Postop. TECHNIQUE: 2 views of right knee were obtained. COMPARISON: Right knee radiographs 11/15/2023 FINDINGS: There is a total right knee arthroplasty with patellar resurfacing in near-anatomic alignme nt. No fracture. There is gas in the knee joint and soft tissues, consistent with recent surgery. Ant erior skin giovanni are noted. IMPRESSION: 1. Total right knee arthroplasty in near-anatomic alignment. Reviewed, dictated and finalized at location A.
--- NOTE | 2024-05-08 06:41 | WPDHPUPDATE1 ---
History and Physical Update Update Date/Time: 05/08/24 06:41 History and Physical has been reviewed, including an updated exam of the patient. There are NO changes in the patient's condition. Risks, benefits, and alternatives have been discussed and questions answered. Patient agrees to proceed with procedure. Discussed AGAIN, the risks of surgery in detail. Infection and possibility of not getting his knee totally straight were discussed and are certainly worrisome. This can lead to eventual amputation. He understands, but is miserable, has lost significant weight and wants to proceed. Will proceed per his request.
[2024-05-08] MEDS: ACETAMINOPHEN 500 MG TABLET 1000 MG PO (06:45)
[2024-05-08] MEDS: LACTATED RINGERS 1,000 ML 30 ML IV CONT ×3 (06:50→11:15)
[2024-05-08] MEDS: TRANEXAMIC ACID 1,000MG/ISO100 1,000 MG/100 ML BAG 200 MG IVPB (06:50)
[2024-05-08 06:55] LABS: Glucose Point of Care 144 mg/dl (65-105)
[2024-05-08] MEDS: VANCOMYCIN 1,750 MG/NS 500 ML BAG 250 MG IVPB (06:55)
--- NOTE | 2024-05-08 07:12 | SUR.PREOP ---
0600 DR DA SILVA CALLED TO REQUEST TO SEE PATIENT PRIOR TO PREPPING PT. 0650 PT HAS A 1.5CM X1.5CM OPEN WOUND TO SOLE OF RIGHT FOOT AT BASE OF 4TH TOE. NO DRAINAGE, SLIGHTLY CRATERED, EDGES CALLUSED, CENTER PINK. DR DA SILVA AWARE, HAS SEEN PREVIOUSLY AND TODAY.
[2024-05-08] MEDS: ceFAZolin 3 GM/D5W 100 ML 100 ML IVPB (07:30)
--- NOTE | 2024-05-08 07:33 | WPDANESEPPF ---
Anes - Initial Pre Proc Eval Procedure: Operation Date: 05/08/24 07:30 Proposed Procedures p Right Total Knee Arthroplasty - Joss Lima MD Date/Time: 05/08/24 07:33 Surgeon: Joss Lima MD Pre Op Diagnosis: O.A. Right Knee Patient Data Age: 53 Gender: M Height: 1.8 m Weight: 120.9 kg Last Vital Signs Temp 98.7 F 05/08/24 06:18 Pulse 99 05/08/24 06:18 Resp 18 05/08/24 06:18 BP 154/102 H 05/08/24 06:18 Pulse Ox 97 05/08/24 06:18 O2 Del Method Room Air 05/08/24 06:18 Allergies Allergy/AdvReac Type Severity Reaction Status Date / Time Penicillins Allergy Unknown Anaphylaxis Verified 05/08/24 06:20 Sulfa (Sulfonamide Allergy Unknown Nausea and Verified 05/08/24 06:20 Antibiotics) Vomiting Home Medications Medication Instructions Recorded Confirmed Type alprazolam 2 mg tablet (Xanax) See Rx Instructions .Route 04/12/21 05/08/24 History .COMPLEX anxiety atorvastatin 20 mg tablet (Lipitor) 20 mg PO HS 04/12/21 05/08/24 History pregabalin 300 mg capsule (Lyrica) 300 mg PO BID 04/12/21 05/08/24 History rivaroxaban 10 mg tablet (Xarelto) 10 mg PO DAILY PE Prophylaxis s/p 04/05/24 05/06/24 Rx joint replacement surgery #10 tabs acetaminophen 500 mg capsule 1,000 mg PO Q6H PRN Pain 05/06/24 05/06/24 History amlodipine 10 mg tablet 10 mg PO DAILY 05/06/24 05/08/24 History carvedilol 12.5 mg tablet 12.5 mg PO BID 05/06/24 05/08/24 History glipizide 5 mg tablet 5 mg PO DAILY 05/06/24 05/08/24 History hydrochlorothiazide 25 mg tablet 25 mg PO DAILY 05/06/24 05/08/24 History lisinopril 40 mg tablet 40 mg PO DAILY 05/06/24 05/08/24 History multivitamin (Daily Multi-Vitamin 1 tablet PO DAILY 05/06/24 05/08/24 History tablet) trazodone 50 mg tablet 50 mg PO PRN PRN Insomnia 05/06/24 05/06/24 History Laboratory Tests 05/08/24 06:47 POC Capillary Glucose 144 H mg/dl (65-105) Patient hx anesthesia problems: none Family hx anesthesia problems: none Results Review: All pre-operative results and documents have been reviewed as part of the pre-operative evaluation. [facility] Past Medical History Medical History Anxiety Chronic low back pain Hypertension Obstructive sleep apnea Peripheral neuropathy Type 2 diabetes mellitus Surgical History Surgical History History of aortoiliofemoral vascular bypass History of appendectomy History of arthroscopic knee surgery bilateral History of arthroscopy of left knee History of partial amputation of toe of left foot Family History Family History (Updated 04/30/24 @ 10:43 by KENIA Martínez) Father Hypertension Family history of diabetes mellitus in first degree relative Mother Hypertension Family history of diabetes mellitus in first degree relative Cellulitis Heart disease Sibling Family history of diabetes mellitus in first degree relative Social History Social History (Updated 04/30/24 @ 10:44 by KENIA Martínez) Smoking packs per day: 1 Smoking cigarettes per day: 20.0 Years smoked: 20 Smoking pack-years: 20.00 Smoking status: Former smoker Tobacco type: cigarettes Second hand tobacco smoke exposure: Yes Smoking end date: 03/07/24 Additional smoking assessment comments: DENIES ANY FORM OF TOBACCO USE Alcohol intake: never Substance use: former Substance use type: marijuana Last use: last use 2020 Do You Feel Safe in your Home?: Yes Lack of Transportation: No Lack of Food: Sometimes True Current Housing: I Have Housing Concerned About Future Housing: No Difficulty Paying Gas/Electric Bills: YES Difficulty Paying for Meds: YES Currently Unemployed: No Education: Master's Degree or Higher Difficulty w/ Childcare or Family Care: No Living arrangements: other Additional living arrangements comments: lives with gir
--- NOTE | 2024-05-08 08:00 | SUR.OPER ---
Upon examination in the PreOp area, the patient was noted to have an open-wound sore on the sole of the right foot at the base of the 4th toe. This wound was shown to the physician. approved to proceed with surgery this morning. -Avi Macias RN.
--- NOTE | 2024-05-08 09:32 | W.PM.PROC2 ---
Procedure Note - Detailed Date of Procedure 05/08/24 Pre-op Diagnosis Osteoarthritis Right Knee Post-op Diagnosis Same Procedure Performed Right Total Knee Surgeon Joss Lima MD Data Quality Consultant Satish Alamo Anesthesia General Indications Pain, stiffness, arthritis Description of Procedure The patient was brought to operating room #7. A general anesthetic was administered. Placed on the operating table and sterilely prepped and draped in usual manner. A longitudinal incision was made. Tourniquet inflated to 300 mmHg for a total of 75 minutes. Dissection was carried down to the fascia. Medial parapatellar incision was made and the patella subluxated laterally. Patella cut from 30 to 19 mm and sized for a 37 mm button. The tibia was cut perpendicular to the long axis and femur cut in 5 degrees of valgus. A 72.5 femur trialed. 79 tibia was felt to fit the best. The soft tissues balanced, hemostasis obtained. All [address], 79 tibia, 72.5 femur, 37 mm patella, and 11AS mm poly. Motion was 0-125 degrees with good stability in both flexion and extension. The wound was closed with #2 Vicryl, 2-0 Vicryl and giovanni. Preop motion was measured on the table and was about 20 to 90? of motion, which made this extremely difficult with the stiffness and osteophytes and low lying patella. [employer] Estimated Blood Loss 200 Tourniquet Time Total Tourniquet Time: 75 Urine Output 220 Drains No Packing No Pathology None sent Complications No immediate complications Condition Stable Disposition PACU [facility] Billing Surgery - Charge Forward: Surgery Billing ([id number] Total Knee)
[2024-05-08] MEDS: SODIUM CHLORIDE 0.9% IV 37.7 ML, MORPHINE SULFATE INJ (*CRX) 2 MG, ROPivacaine HCL 1% 2... INFILTRATE (09:36)
[2024-05-08 10:29] LABS: Glucose Point of Care 149 mg/dl (65-105)
[2024-05-08] MEDS: fentaNYL CITRATE INJ (*CRX) 100 MCG/2 ML VIAL 25 MCG IV PUSH ×5 (10:30→10:58)
--- NOTE | 2024-05-08 11:40 | PC.NURSE ---
This patient, Niko Lopez, was admitted to 3 [facility] Surg Room 330-02. Patient/family oriented to hospital policies and general routines including ID bracelet, bed and alarms, visiting hours, pain management, procedures, bathroom and other care routines, personal items, smoking policy, room service/diet, and visiting hours. Information on how to activate the Rapid Response Team has been discussed. Patient/Family are encouraged to report perceived risks to care and to ask questions if they do not understand what they are told or what they should do.
[2024-05-08] MEDS: SODIUM CHLORIDE 0.9% IV 1,000 ML 125 ML IV CONT (12:32)
[2024-05-08] MEDS: PROPARACAINE HCL 0.5% 15 ML OPHTH SOLN 1 DROP EACH EYE (12:33)
[2024-05-08] MEDS: HYDROcodone/acetaminophen (*CRX) 7.5-325 MG TABLET 1 TAB PO (12:37)
--- NOTE | 2024-05-08 14:58 | PCPTNOTE ---
Called care coordination and spoke with Eduard about getting patient a new walker for safe discharge.
--- NOTE | 2024-05-08 15:54 | PCCCNOTE ---
Care Coordination - Received phone call from PT today, aware CC will meet with pt. tomorrow to assess and help with DC needs as pt. was just admitted today, consult also received for Xarelto (which is not a home medication). PT reported pt. has a walker; however, it buckled today thus not safe to DC home with. CC tried calling pt.'s significant other Melva; however, unable to reach. CC did speak with pt. over the phone who reported not to bother his significant other with this as she is dealing with their tele grout sewer line repairer being backed up. CC spoke with [facility] who confirmed they have millions of different types of walkers if family wants to come pick one up. Will follow up with pt. tomorrow and provide him with address information for [employer] and Xarelto coupon printed to provide to pt. tomorrow. CC to continue to follow to assist with DC needs.
[2024-05-08] MEDS: RIVAROXABAN 10 MG TABLET PO (16:33)
[2024-05-08] MEDS: SENNA/DOCUSATE SODIUM TABLET 2 TAB PO (16:33)
[2024-05-08] MEDS: CELECOXIB 200 MG CAPSULE PO (16:33)
[2024-05-08] MEDS: ALPRAZolam (*CRX) 0.5 MG TABLET 2 MG PO ×2 (16:33→21:24)
[2024-05-08] MEDS: PREGABALIN (*CRX) 75 MG CAPSULE 300 MG PO (16:34)
[2024-05-08] MEDS: ceFAZolin 2 GM/D5W 50 ML 2 GM/50 ML BAG IVPB (16:35)
[2024-05-08] MEDS: DICLOFENAC SODIUM 0.1% OPHTH SOLN 2.5 ML BOTTLE 1 DROP EACH EYE (16:36)
[2024-05-08] MEDS: carvediloL 12.5 MG TABLET PO (16:36)
[2024-05-08] MEDS: IBUPROFEN IV 800 MG/200 ML 800 MG/200 ML BAG 400 MG IVPB (20:24)
[2024-05-08] MEDS: ATORVASTATIN 20 MG TABLET PO (21:24)
[2024-05-08] MEDS: FAMOTIDINE 20 MG TABLET PO (21:24)
[2024-05-09] MEDS: ceFAZolin 2 GM/D5W 50 ML 2 GM/50 ML BAG IVPB ×2 (00:38→08:47)
[2024-05-09] MEDS: HYDROcodone/acetaminophen (*CRX) 7.5-325 MG TABLET 1 TAB PO ×2 (00:42→08:34)
[2024-05-09 01:42] VITALS: BP 132/78; PULSE 74; RESP 20; TEMP 36.7; O2SAT 100
[2024-05-09 05:42] VITALS: BP 143/80; PULSE 84; RESP 16; TEMP 36.3; O2SAT 97
[2024-05-09 06:30] LABS: Basophils Absolute Auto 0.1 K/mm3 (0.0-0.1); Basophils Percent Auto 0.5 % (0.2-1.2); Eosinophils Absolute Auto 0.1 K/mm3 (0-0.3); Eosinophils Percent Auto 1.2 % (0-4.4); Hematocrit 39.5 % (42.0-52.0); Hemoglobin 12.7 g/dL (14.0-18.0); Immature Granulocyte Absolute 0.03 K/mm3 (0.00-0.031); Immature Granulocyte Percent A 0.3 % (0-0.5); Lymphocytes Absolute Auto 2.51 K/mm3 (0.9-3.2); Lymphocytes Percent Auto 22.3 % (18.3-44.2); Mean Corpuscular HGB Conc 32.2 g/dl (32-36); Mean Corpuscular Hemoglobin 28.5 pg (26-34); Mean Corpuscular Volume 88.6 fl (80-100); Mean Platelet Volume 10.2 fl (7.4-10.4); Monocytes Absolute Auto 1.3 K/mm3 (0.1-0.6); Monocytes Percent Auto 11.3 % (2.6-8.5); Neutrophils Absolute Auto 7.2 K/mm3 (1.3-6.7); Neutrophils Percent Auto 64.4 % (45.5-73.1); Platelet Count Result 285 k/mm3 (150-375); Red Blood Count 4.46 M/mm3 (4.6-6.20); Red Cell Distribution Width 14.7 % (11.5-14.5); White Blood Count 11.3 K/mm3 (4.5-10.0)
--- NOTE | 2024-05-09 06:39 | PM.PNORT ---
Progress Note: A&P Assessment and Plan (1) Osteoarthritis of right knee: Code(s): M17.11 - Unilateral primary osteoarthritis, right knee Status: Acute Assessment and Plan: Patient underwent total knee replacement for knee osteoarthritis. Overall he has done well postop he can be dismissed home. He is at high risk for infection of she discussed before surgery also has some the stiffness which I corrected during surgery. Subjective Subjective Date/Time Seen: 05/09/24 06:39 Post Op day: 1 Principal diagnosis: Right total knee arthroplasty for right knee osteoarthritis Review of Systems Musculoskeletal: Musculoskeletal: Reports arthralgias, Reports joint swelling and Reports stiffness Exam Narrative: Dressing intact. Patient is wiggling his toes. Neurologically appears to be grossly intact. Patient is able ambulate. Objective Data Vital Signs Vital Signs: Vital Signs - 24 hr 05/08/24 10:06 05/08/24 10:20 05/08/24 10:35 Temperature 97.7 F Pulse Rate 98 82 83 Respiratory Rate 16 15 19 Blood Pressure 176/116 H 155/105 H 148/105 H Pulse Oximetry 100 100 98 Oxygen Delivery Simple Face Mask Simple Face Mask Room Air Oxygen Flow Rate 10 10 05/08/24 10:50 05/08/24 11:05 05/08/24 11:20 Temperature Pulse Rate 73 74 75 Respiratory Rate 14 13 14 Blood Pressure 149/98 H 149/98 H 142/95 H Pulse Oximetry 98 98 98 Oxygen Delivery Room Air Room Air Room Air Oxygen Flow Rate 05/08/24 12:00 05/08/24 12:15 05/08/24 12:45 Temperature 97.5 F L 97.2 F L 98.4 F Pulse Rate 76 78 81 Respiratory Rate 20 20 22 H Blood Pressure 133/90 142/92 H 135/83 Pulse Oximetry 97 96 97 Oxygen Delivery Oxygen Flow Rate 05/08/24 13:45 05/08/24 16:36 05/08/24 16:00 Temperature 98.2 F 97.5 F L Pulse Rate 89 96 78 Respiratory Rate 18 20 Blood Pressure 132/89 145/80 H Pulse Oximetry 97 97 Oxygen Delivery Oxygen Flow Rate 05/08/24 12:00 05/08/24 19:51 05/08/24 20:00 Temperature 97.8 F Pulse Rate 85 Respiratory Rate 16 Blood Pressure 123/62 Pulse Oximetry 95 Oxygen Delivery Room Air Room Air Oxygen Flow Rate 05/08/24 21:42 05/09/24 01:42 05/09/24 05:42 Temperature 97.0 F L 98.0 F 97.4 F L Pulse Rate 74 74 84 Respiratory Rate 18 20 16 Blood Pressure 132/78 132/78 143/80 H Pulse Oximetry 99 100 97 Oxygen Delivery Oxygen Flow Rate Intake/Output Intake/Output: Intake & Output 05/06/24 05/07/24 05/08/24 05/09/24 23:59 23:59 23:59 23:59 Intake Total 1650 Output Total 1790 600 Balance -140 -600 Meds/Results Medications: Active Medications Generic Name Dose Route Start Last Admin Trade Name Freq PRN Reason Stop Dose Admin Hydrocodone Bitart/Acetaminophen 1 tab 05/08/24 11:57 Hydrocodone/Acetaminophen (*Crx) 5-325 Mg Tablet PO Q4H PRN Pain Rated 4-6 Hydrocodone Bitart/Acetaminophen 1 tab 05/08/24 11:57 05/09/24 00:42 Hydrocodone/Acetaminophen (*Crx) 7.5-325 Mg Tablet PO 1 tab Q4H PRN Administration Pain Rated 7-10 Alprazolam 2 mg 05/08/24 17:00 05/08/24 21:24 Alprazolam (*Crx) 0.5 Mg Tablet PO 2 mg QID SUDHA Administration Amlodipine Besylate 10 mg 05/09/24 09:00 Amlodipine Besylate 10 Mg Tablet PO DAILY SUDHA Artificial Tears 1 drop 05/08/24 11:59 Artificial Tears Ophth Soln 15 Ml Bottle EACH EYE Q2H PRN Dry Eye(s) Atorvastatin Calcium 20 mg 05/08/24 21:00 05/08/24 21:24 Atorvastatin 20 Mg Tablet PO 20 mg HS SUDHA Administration Carvedilol 12.5 mg 05/08/24 17:00 05/08/24 16:36 Carvedilol 12.5 Mg Tablet PO 12.5 mg BID SUDHA Administration Celecoxib 200 mg 05/08/24 17:00 05/08/24 16:33 Celecoxib 200 Mg Capsule PO 200 mg BIDWM SUDHA Administration Cyclobenzaprine HCl 10 mg 05/08/24 11:57 Cyclobenzaprine Hcl 10 Mg Tablet PO Q8H PRN Spasms Diclofenac Sodium 1 drop 05/08/24 14:00 05/09/24 04:29 Diclofenac S
[2024-05-09 06:40] LABS: Anion Gap 9 mmol/L (4-12); Blood Urea Nitrogen 19 mg/dL (9-20); Calcium 8.4 mg/dL (8.4-10.2); Carbon Dioxide 24 mmol/L (22-30); Chloride 103 mmol/L (98-107); Estimated CRCL calculation 111 ml/min; Estimated Glomerular Filt Rate > 60; Glucose 115 mg/dL (65-110); Potassium 4.1 mmol/L (3.4-5.0); Sodium 136 mmol/L (137-145)
--- NOTE | 2024-05-09 06:41 | PM.DS ---
DS: Admitting Diagnosis Discharge Date 05/09/2024 Admitting Diagnosis Right knee osteoarthritis DS: Discharge Diagnosis Discharge Diagnosis (1) Osteoarthritis of right knee: Code(s): M17.11 - Unilateral primary osteoarthritis, right knee Status: Acute Assessment and Plan: Patient underwent total knee arthroplasty for severe knee arthritis on the right knee. Done well postoperatively can be dismissed home. He realizes because of his diabetes he is at high risk for infection. He will also have to work hard to keep and maintain his motion. (2) Foot ulcer due to secondary DM: Code(s): E13.621 - Other specified diabetes mellitus with foot ulcer; L97.509 - Non-pressure chronic ulcer of other part of unspecified foot with unspecified severity Status: Acute DS: Summary Hospital Course Hospital Course: Patient had a typical course status post total knee arthroplasty. He can be dismissed at this time with full weight-bearing. Anticipate follow-up 10 to 14 days for sutures out. Status at Discharge Functional status at discharge: uses cane/walker Time Spent with Patient Time attestation: Total time spent providing and/or coordinating discharge services: DS: Data Data Completed and Pending Labs on day of discharge: Labs from last 24 hours 05/09/24 05/08/24 05/08/24 05:54 10:27 06:47 WBC 11.3 H RBC 4.46 L Hgb 12.7 L Hct 39.5 L MCV 88.6 MCH 28.5 MCHC 32.2 RDW 14.7 H Plt Count 285 MPV 10.2 Immature Gran % (Auto) 0.3 Neut % (Auto) 64.4 Lymph % (Auto) 22.3 [place] % (Auto) 11.3 H Eos % (Auto) 1.2 Baso % (Auto) 0.5 Lymph # (Auto) 2.51 [place] # (Auto) 1.3 H Eos # (Auto) 0.1 Baso # (Auto) 0.1 Abs Immat Gran (auto) 0.03 Absolute Neuts (auto) 7.2 H Absolute Nucleated RBC 0.000 Nucleated RBC % 0.0 Sodium 136 L Potassium 4.1 Chloride 103 Carbon Dioxide 24 Anion Gap 9 BUN 19 Creatinine 0.90 Estim Creat Clear Calc 111 Estimated GFR > 60 Glucose 115 H POC Capillary Glucose 149 H 144 H Calcium 8.4 Discharge Plan Discharge Patient Disposition: Home, Self-Care Discharge Instructions: Dr. Joss Lima M.D [address] [place] [address] POST-OPERATIVE DISCHARGE INSTRUCTIONS TOTAL KNEE ARTHROPLASTY 1. When resting, do not rest in the chair.When resting, lie on your back, with back flat on the couch or bed, with leg elevated above heart to minimize swelling. You may put a pillow under your head. . Significant swelling could indicate a blood clot and if this occurs call the office (or go to the ER) to have a venous ultrasound. Therefore, do not rest in a chair. 2. At least five times a day spend several minutes stretching your knee into flexion while sitting in the chair and also stretching your knee out straight The abilities to bend your knee fulling and straighten your knee fully are two most important knee functions to focus on during your recovery. 3. It is ok to sit in chair to eat, use the toilet and receive a guest and to do your stretching exercises, but, sitting in a chair will cause your leg to swell. Therefore, avoid additional time sitting in the chair. and don't rest in the chair. 4. Wound Care: Nursing will give you an additional Mepilex dressing at the time of discharge. Patient to remove the dressing and apply a new Mepilex dressing at home 7 days after surgery and leave the dressing on until seen in office. 5. May shower with a Mepilex dressing in place.The water will run off the dressing. 6. Unless you are told otherwise, you may put full weight on your operated leg. Use a walker for balance and practice walking as normally as you can, ideally for a few minutes every hour while you are awake. 7. I would advise against putting ice packs on your knee incision. Ice constricts blood flow which can impar healing of the knee incis
[2024-05-09 08:00] VITALS: BP 145/92; PULSE 88; RESP 18; TEMP 36.3; O2SAT 100
[2024-05-09] MEDS: ALPRAZolam (*CRX) 0.5 MG TABLET 2 MG PO (08:32)
[2024-05-09 08:33] VITALS: PULSE 80
[2024-05-09] MEDS: amLODIPine BESYLATE 10 MG TABLET PO (08:33)
[2024-05-09] MEDS: CELECOXIB 200 MG CAPSULE PO (08:33)
[2024-05-09] MEDS: lisinopriL 20 MG TABLET 40 MG PO (08:33)
[2024-05-09] MEDS: SENNA/DOCUSATE SODIUM TABLET 2 TAB PO (08:33)
[2024-05-09] MEDS: PREGABALIN (*CRX) 75 MG CAPSULE 300 MG PO (08:33)
[2024-05-09] MEDS: carvediloL 12.5 MG TABLET PO (08:33)
[2024-05-09] MEDS: hydroCHLOROthiazide 25 MG TABLET PO (08:34)
[2024-05-09] MEDS: FAMOTIDINE 20 MG TABLET PO (08:35)
--- NOTE | 2024-05-09 11:41 | WPDANESPN ---
Anes - Prog Note Post-Op Date/Time: 05/09/24 11:41 Cardiovascular status: normal Respiratory status: normal Airway patency: baseline Mental status: baseline Post-Op hydration status: normal Vital Signs: Last Vital Signs Temp 36.3 C L 05/09/24 08:00 Pulse 80 05/09/24 08:33 Resp 18 05/09/24 08:00 BP 145/92 H 05/09/24 08:00 Pulse Ox 100 05/09/24 08:00 O2 Del Method Room Air 05/08/24 20:00 O2 Flow Rate 10 05/08/24 10:20 Pain Score (VAS): 0 I/O: Intake & Output 05/08/24 05/09/24 05/09/24 23:59 07:59 15:59 Intake Total 50 50 236 Output Total 1350 600 Balance -1300 -550 236 Laboratory Tests 05/09/24 05:54 05/09/24 05:54 05/09/24 05:54 WBC 11.3 H RBC 4.46 L Hgb 12.7 L Hct 39.5 L MCV 88.6 MCH 28.5 MCHC 32.2 RDW 14.7 H Plt Count 285 MPV 10.2 Immature Gran % (Auto) 0.3 Neut % (Auto) 64.4 Lymph % (Auto) 22.3 [place] % (Auto) 11.3 H Eos % (Auto) 1.2 Baso % (Auto) 0.5 Lymph # (Auto) 2.51 [place] # (Auto) 1.3 H Eos # (Auto) 0.1 Baso # (Auto) 0.1 Abs Immat Gran (auto) 0.03 Absolute Neuts (auto) 7.2 H Absolute Nucleated RBC 0.000 Nucleated RBC % 0.0 Sodium 136 L Potassium 4.1 Chloride 103 Carbon Dioxide 24 Anion Gap 9 BUN 19 Creatinine 0.90 Estim Creat Clear Calc 111 Estimated GFR > 60 Glucose 115 H Calcium 8.4 Post-procedural complaints: none Patient Feedback: Patient satisfied with anesthetic care.
== END 2024-05-09 11:23 | disposition home or self-care (01) ==
LOC: ANHSURGERY 05:58 → ANH3MEDSUR 12:02
PROVIDERS: PCP Internal Medicine Gastroenterology; Visit Provider Orthopaedic Surgery
PROC: (CPT 27447; principal; 2024-05-08 07:30)
DX: M17.11 Unilateral primary osteoarthritis, right knee (principal); L97.519 Non-pressure chronic ulcer of other part of right foot with unspecified severity; I10 Essential (primary) hypertension; E11.42 Type 2 diabetes mellitus with diabetic polyneuropathy; G47.33 Obstructive sleep apnea (adult) (pediatric); F41.9 Anxiety disorder, unspecified; G89.29 Other chronic pain; M54.50 Low back pain, unspecified; F12.90 Cannabis use, unspecified, uncomplicated; E66.9 Obesity, unspecified; Z68.37 Body mass index [BMI] 37.0-37.9, adult; Z79.01 Long term (current) use of anticoagulants; Z79.84 Long term (current) use of oral hypoglycemic drugs; Z98.890 Other specified postprocedural states; Z89.422 Acquired absence of other left toe(s); Z87.891 Personal history of nicotine dependence; Z86.79 Personal history of other diseases of the circulatory system; Z82.49 Family history of ischemic heart disease and other diseases of the circulatory system
CPT/HCPCS: 27447; 36415; 73560; 80048; 80307; 82040; 82948; 83036; 85025; 86850; 86900; 86901; 87641; 93005; 97110; 97116; 97161; 97166; 97530; 97535; A9270; C1713; C1776; J0171; J0690; J1100; J1596; J1741; J1885; J2250; J2270; J2371; J2405; J2704; J2795; J3010; J3370; J7030; J7120; L1830

== ENCOUNTER 2024-05-30 12:39 | Outpatient (CLI) | payer MEDICARE, MEDICAID, SELFPAY ==
--- NOTE | ~2024-05-30 | US_ITS ---
EXAMINATION:US venous doppler LE RT INDICATION:Right lower extremity pain TECHNIQUE: Multiple grayscale, color flow and Doppler images of the right lower extremity deep venous systems were obtained and reviewed. COMPARISON:No prior studies for comparison. FINDINGS: The common femoral, superficial femoral and popliteal veins demonstrate normal respiratory variation, augmentation and compressibility. Color flow is also seen within the posterior tibial, pe roneal, greater saphenous and profunda veins. IMPRESSION: 1: No lower extremity deep venous thrombosis. Reviewed, dictated and finalized at location B.
== END 2024-05-30 12:40 | disposition home or self-care (01) ==
PROVIDERS: PCP Internal Medicine Gastroenterology; Visit Provider Orthopaedic Surgery
DX: M79.89 Other specified soft tissue disorders (principal)
CPT/HCPCS: 93971

== ENCOUNTER 2024-10-07 14:05 | Outpatient (CLI) | payer MEDICARE, MEDICAID, SELFPAY ==
--- NOTE | ~2024-10-07 | XR_ITS ---
3 VIEWS THORACIC SPINE Ordering provider: Rafita Enriquez History: . RADICULOPATHY, C, T, L REGION . Comparison: None. FINDINGS: VERTEBRAL BODIES: Possible loss of height in T12 is marked excluded. Otherwise, Normal height and ali gnment. No visible fracture or subluxation. Ossification of the anterior longitudinal ligament. Ankyl osing spondylitis should be considered. DISK SPACES: Normal. SOFT TISSUES: Normal. IMPRESSION: No acute osseous abnormality of the thoracic spine. Ossification of the anterior and right lateral ligaments suggestive of ankylosing spondylitis. Clinic al correlation advised. Reviewed, dictated and finalized at location A. TARY [employer]K[employer] MACHINE TENDER IMPRESSION: No acute osseous abnormality of the thoracic spine. Ossification of the anterior and right lateral ligaments suggestive of ankylosi ng spondylitis. Clinical correlation advised.
--- NOTE | ~2024-10-07 | XR_ITS ---
3 VIEWS LUMBAR SPINE Ordering provider: Rafita Enriquez History: . RADICULOPATHY, C, T, L REGION . Comparison: None. FINDINGS: VERTEBRAL BODIES: Compression fracture of T12 is noted most likely chronic. MRI evaluation advised. O therwise,. No visible fracture or subluxation. Syndesmophytes are seen anteriorly suggestive of ankyl osing spondylitis. DISK SPACES: Narrowing of the disc L5-S1. Multilevel facet joint disease. Right sacroiliitis. SOFT TISSUES: Normal. IMPRESSION: Compression fracture of T12 most likely chronic. Otherwise, No acute osseous abnormality lumbar spine . Degenerative disc disease at the level of L5-S1. Highly suggestive of ankylosing spondylitis. Clinical correlation advised. Reviewed, dictated and finalized at location A. CE ADMINISTRATIVE ASSISTANT IMPRESSION: Compression fracture of T12 most likely chronic. Otherwise, No acute osseous ab normality lumbar spine. Degenerative disc disease at the level of L5-S1. Highly suggestive of ankylosing spondylitis. Clinical correlation advised.
--- NOTE | ~2024-10-07 | XR_ITS ---
XR cervical spine 4-5V Ordering provider: Adilia Kraus History: . RADICULOPATHY, C, T, L REGION . Comparison: A FINDINGS: VERTEBRAL BODIES: Normal height and alignment. No visible fracture or subluxation. The dens is intact . Mild degenerative changes. DISK SPACES: Narrowing of the disc C6-C7. PARASPINOUS SOFT TISSUES: No prevertebral soft tissue swelling. IMPRESSION: No acute osseous abnormality cervical spine. Reviewed, dictated and finalized at location A. NESS SERVICES OFFICER
== END 2024-10-07 14:06 | disposition home or self-care (01) ==
DX: M51.379 Other intervertebral disc degeneration, lumbosacral region without mention of lumbar back pain or lower extremity pain (principal); M48.54XA Collapsed vertebra, not elsewhere classified, thoracic region, initial encounter for fracture; M54.12 Radiculopathy, cervical region; M54.14 Radiculopathy, thoracic region; M54.16 Radiculopathy, lumbar region
CPT/HCPCS: 72050; 72072; 72100